=== PATIENT | female | born 1940 | race Caucasian/White ===

== ENCOUNTER 2020-11-29 12:42 | Observation (INO) ==
[2020-11-29] MEDS ORDERED: 0.9 % SODIUM CHLORIDE 1,000 ML IV ONE (14:03)
[2020-11-29] MEDS ORDERED: ONDANSETRON 4 MG/2 ML VIAL IV ONE (14:03)
--- NOTE | 2020-11-29 14:03 | Emergency Department Note ---
HPI General Chief complaint: Nausea/Vomiting/Diarrhea Stated complaint: Nausea Time Seen by Provider: 11/29/20 13:29 Source: patient Mode of arrival: wheelchair Limitations: no limitations History of Present Illness HPI Narrative: Narrative: 80-year-old female with a past medical history of a TIA, hypertension, type 2 diabetes presents emergency department with complaints of weakness, nausea and history of unable to speak for about 30 minutes. She states that from 02-14 she was unable to answer any questions from her while they are eating breakfast. It resolved but she was still having nausea and felt weak. Here in the emergency department she denies any focal neurological deficits but still feels weak and mildly nauseous. She denies fever, headache, changes in vision, chest pain, shortness of breath, abdominal pain, nausea, vomiting, diarrhea, dysuria, urinary frequency but endorses urgency for the last couple days. Related Data Home Medications Medication Instructions Recorded Confirmed Aspirin 01/17/15 01/17/15 Clopidogrel DAILY 01/17/15 01/17/15 Flaxseed 01/17/15 01/17/15 Irbesartan DAILY 01/17/15 01/17/15 Super Sha-Mag Tablet 01/17/15 01/17/15 Vitamin B12 01/17/15 01/17/15 sitaGLIPtin DAILY 01/17/15 01/17/15 amlodipine PO 11/29/20 11/29/20 clonidine HCl 0.2 mg PO BID 11/29/20 11/29/20 estradiol mg PO 11/29/20 11/29/20 ferrous sulfate 325 mg PO QDAY 11/29/20 11/29/20 glipizide-metformin tab PO 11/29/20 11/29/20 metoprolol tartrate 100 mg PO BID 11/29/20 11/29/20 omeprazole 20 mg PO ACB 11/29/20 11/29/20 potassium chloride [Klor-Con M10] 10 meq PO DAILY 11/29/20 11/29/20 prednisone PO 11/29/20 11/29/20 Previous Rx's Medication Instructions Recorded ciprofloxacin HCl 250 mg PO BID #14 tab 11/19/18 hydrocodone-acetaminophen 1 each PO 3-4XD #20 tab 11/19/18 Allergies Allergy/AdvReac Type Severity Reaction Status Date / Time Antihistamines - Alkylamine Allergy Severe NUMBNESS/TI Verified 11/29/20 12:47 [ANTIHISTAMINES - ALKYLAMINE] NGLING morphine [MORPHINE] AdvReac Intermediate VOMITING Verified 11/29/20 12:47 Enalapril [ENALAPRIL] AdvReac Mild COUGH Verified 11/29/20 12:47 tramadol [TRAMADOL] AdvReac Mild VOMIT Verified 11/29/20 12:47 SUGAR Allergy Mild TINGLING Uncoded 11/09/14 13:55 TO EXTREMITIES Review of Systems ROS ROS Narrative: Narrative: All systems ED: reviewed and negative except as stated. Constitutional: Reports weakness Gastrointestinal: Reports nausea Neurological: Reports other (Temporary dysphagia) PFSH Narrative Patient History Narrative: Narrative: Medical/Surgical/Family History All Active Problems (Updated 11/29/20 @ 17:50 by Kendrick Talley PA-C) Dehydration (Acute) Hematoma (Acute) UTI (urinary tract infection) (Acute) Brain TIA (Acute) Acute UTI (Acute) Medical History Dehydration Social History Smoking Status: Never smoker Exam Narrative Narrative: Narrative: General Limitations: no limitations General appearance: Present alert, in no apparent distress, nontoxic and other Eye Eye: Present PERRL and EOMI Respiratory Respiratory: Present normal lung sounds bilaterally Cardiovascular Cardiovascular: Present regular rate, normal rhythm and normal heart sounds Adbominal Abdominal: Present other (Abdomen soft, nondistended, no guarding) Back Back: Present other (No CVA tenderness) Expanded Neurological Patient oriented to: Present person, place and time Speech: Present fluid speech CRANIAL NERVES: EOM function (II, III, IV, ): Normal, facial sensation (V): Normal, facial palsy (VII): Normal, gag reflex (IX): Normal, spinal accessory function (XI): Normal and tongue deviation (XII): Normal CEREBELLAR FUNCTION: finger to nose: Normal and heel to shine: Normal CEREBELLAR FUNCTION: normal gait and other (No truncal ataxia, mild left pronator drift) Motor strength - LUE: 5/5 Motor strength - RUE: 5/5 Motor strength - LLE: 5/5 Motor strength - RLE: 5/5 UPPER MOTOR NEURON EXAM: juan ramon neglect: Normal Coma Scale Eye Opening: Spontaneous Coma Scale Motor Response: Obeys Commands Coma Scale Verbal Response: Oriented Coma Scale Total: 15 Psychiatric Psychiatric: Present normal affect Skin Skin: Present warm (WNL), dry and normal color Course Vital Signs Vital signs: Vital Signs Temperature 98.4 F 11/29/20 12:43 Pulse Rate 73 11/29/20 12:43 Respiratory Rate 16 11/29/20 12:43 Blood Pressure 184/79 11/29/20 12:43 Pulse Oximetry (%) 98 11/29/20 12:43 Temperature 98.4 F 11/29/20 12:43 Pulse Rate 75 11/29/20 17:01 Respiratory Rate 16 11/29/20 12:43 Blood Pressure 157/68 11/29/20 17:01 Pulse Oximetry (%) 97 11/29/20 17:01 MDM MDM Narrative Medical decision making narrative: Narrative: 325 given due to the patient already taking baby aspirin and clopidogrel together. CBC CMP UA Orthostatic vital signs EKG shows normal sinus rhythm no signs of ischemia Portable chest x-ray showed borderline cardiomegaly without acute finding CT of the brain without contrast were negative for acute normality 1 L of normal saline ordered for possible dehydration Zofran for nausea Patient's labs reviewed and mildly elevated white count. Her orthostatic vital signs were within normal range. She has a UA that is indicative of the urinary tract infection. With the patient's history of a TIA and another episode of Aphasia patient needs to be admitted for TIA and further work-up as well as treatment of urinary tract infection The hospitalist agreed to come the emergency department to evaluate the patient admit for further evaluation and treatment. Lab Data Result diagrams: 11/29/20 14:34 11/29/20 14:34 Labs: Lab Results 11/29/20 11/29/20 11/29/20 Range/Units 14:34 14:34 15:54 WBC 15.2 H (4.5-11.0) K/mcL RBC 4.99 (4.00-5.20) M/mcL Hgb 13.9 (12.0-15.0) g/dL Hct 43.0 (36.0-48.0) % MCV 86.2 (80.0-100.0) fL MCH 27.9 (26.0-34.0) pg MCHC 32.3 (31.0-36.0) g/dL RDW 13.7 (11.5-14.5) % Plt Count 237 (140-440) K/mcL MPV 10.3 (7.4-10.4) fL Neut % (Auto) 74.6 (38.0-78.0) % Lymph % (Auto) 14.8 L (15.0-49.0) % [place] % (Auto) 9.6 (1.0-12.0) % Eos % (Auto) 0.3 (0.0-7.0) % Baso % (Auto) 0.7 (0.0-2.0) % Lymph # (Auto) 2.25 (1.50-4.80) K/mcL [place] # (Auto) 1.45 H (0.10-0.90) K/mcL Eos # (Auto) 0.05 (0.00-0.70) K/mcL Baso # (Auto) 0.10 (0.00-0.20) K/mcL Absolute Neutrophils 11.33 H (1.80-8.00) K/mcL Sodium 140 (133-145) mmol/L Potassium 3.4 (3.3-5.1) mmol/L Chloride 98 (96-108) mmol/L Carbon Dioxide 29 (22-30) mmol/L Anion Gap 13.0 (8.0-16.0) BUN 10 (8-23) mg/dL Creatinine 0.6 (0.6-1.1) mg/dL GFR Calculation 87 Glucose 194 H (70-105) mg/dL Calcium 9.6 (8.6-10.4) mg/dL Total Bilirubin 0.6 (0.1-1.0) mg/dL AST 11 (<32) U/L ALT 12 (<40) U/L Alkaline Phosphatase 112 (39-117) U/L Total Protein 7.1 (5.9-8.4) gm/dL Albumin 4.1 (3.2-5.2) gm/dL Globulin 3.0 (2.2-3.7) gm/dL Albumin/Globulin Ratio 1.4 (1.0-2.3) Urine Color Yellow Urine Appearance Hazy A (Clear) Urine pH 6.0 (5.0-9.0) Ur Specific [place] 1.007 (1.000-1.035) Urine Protein Neg (Negative) mg/dL Urine Glucose (UA) >=500 A (Negative) mg/dL Urine Ketones Neg (Negative) mg/dL Urine Occult Blood Neg (Negative) mg/dL Urine Nitrate Neg (Negative) Urine Bilirubin Neg (Negative) mg/dL Urine Urobilinogen Neg mg/dL Ur Leukocyte Esterase 75 A (Negative) /ug Urine RBC 1 (0-3) /hpf Urine WBC 26 H (0-4) /hpf Ur Squamous Epith Cells 1 (0-4) /hpf Urine Bacteria Mod A (0) /hpf Urine Mucus Few A (None) /hpf EKG Data EKG #1: EKG results narrative: ECG shows normal sinus rhythm., Left axis deviation, normal MN interval and narrow QRS normal QTC. There is T wave inversion in V2 which was there in 2015. Otherwise there is no signs of Brugada, Edssh-Bubqppidi-Hmcdx or HOCM. There is no ST segment deviations or hyperacute T waves. My interpretation is normal sinus rhythm with left axis deviation. The EKG was reviewed by ER physician who agreed with my interpretation. Discharge Plan Patient/Caregiver Discharge Instructions Pt seen by INDUSTRIAL RETROFIT DESIGNER/PA only: Yes Clinical Impression: Brain TIA, Acute UTI Activity: increase activity as tolerated Instructions: Transient Ischemic Attack (ED) Patient Disposition: Xfer As Inpt ([facility]) Condition: Serious Follow up with: Lisa Beach MD [Primary Care Provider] - Prescriptions: No Action Aspirin 325 MG 325 mg PO DAILY RF: 0 Clopidogrel 75 MG DAILY RF: 0 Flaxseed 1 cap PO DAILY RF: 0 Irbesartan 300 MG 300 mg PO DAILY RF: 0 Super Sha-Mag Tablet 1 cap PO BID RF: 0 Vitamin B12 1,000 MCG/15 ML RF: 0 sitaGLIPtin 100 MG DAILY RF: 0 hydrocodone-acetaminophen 1 EACH tablet 1 each PO 3-4XD Qty: 20 RF: 0 ciprofloxacin HCl 250 MG tablet 250 mg PO BID Qty: 14 RF: 0 ferrous sulfate 325 mg (65 mg iron) Tablet 325 mg PO QDAY RF: 0 amlodipine 5 mg tablet 5 mg PO BID RF: 0 clonidine HCl 0.2 mg tablet 0.2 mg PO BID RF: 0 estradiol 0.5 mg tablet PO RF: 0 potassium chloride [Klor-Con M10] 10 mEq tablet,ER particles/crystals 10 meq PO DAILY RF: 0 glipizide-metformin 2.5-500 mg tablet 2 tab PO BID RF: 0 metoprolol tartrate 100 mg tablet 100 mg PO BID RF: 0 prednisone 5 mg tablet PO RF: 0 omeprazole 20 mg capsule,delayed release(DR/EC) 20 mg PO ACB RF: 0
--- NOTE | 2020-11-29 15:01 | XRay Report ---
CLINICAL INFORMATION: Weakness COMPARISON: 03/30/2014 TECHNIQUE: Portable FINDINGS: The heart is mildly enlarged with decreased. Mediastinum and pulmonary vessels are unremarkable. The lungs are clear. There are no effusions. The bones and soft tissues are within normal limits. IMPRESSION: Borderline cardiomegaly. No acute disease. Interpreted and Authenticated by: Arsalan Shipley 11/29/20
[2020-11-29 15:06] LABS: Basophils % (Auto) 0.7 % (0.0-2.0); Eosinophils # (Auto) 0.05 K/mcL (0.00-0.70); Eosinophils % (Auto) 0.3 % (0.0-7.0); Hemoglobin 13.9 g/dL (12.0-15.0); Lymphocytes # (Auto) 2.25 K/mcL (1.50-4.80); Lymphocytes % (Auto) 14.8 % (15.0-49.0); Mean Cell Volume 86.2 fL (80.0-100.0); Mean Corpuscular HGB Conc 32.3 g/dL (31.0-36.0); Mean Platelet Volume 10.3 fL (7.4-10.4); Monocytes # (Auto) 1.45 K/mcL (0.10-0.90); Monocytes % (Auto) 9.6 % (1.0-12.0); Neutrophils % (Auto) 74.6 % (38.0-78.0); Platelet Count 237 K/mcL (140-440); RBC 4.99 M/mcL (4.00-5.20); Red Cell Distribution Width 13.7 % (11.5-14.5); WBC 15.2 K/mcL (4.5-11.0)
--- NOTE | 2020-11-29 15:08 | EKG ---
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 Measurements Intervals [place] Rate: 71 P: -45 MD: 143 QRS: -13 QRSD: 85 T: 6 QT: 389 QTc: 423 Interpretive Statements Sinus or ectopic atrial rhythm Low voltage, precordial leads Nonspecific T abnormalities, anterior leads NO PRIOR TRACING FOR COMPARISON Electronically Signed On 11-29-2020 15:08:15 PDT by Olivier Joseph M.D. /store/[email or web address]/[id number]
--- NOTE | 2020-11-29 15:22 | Cat Scan Report ---
CLINICAL INFORMATION: TIA COMPARISON: Head CT 03/30/2014 TECHNIQUE: 2.5 mm helical slices were obtained in the skull base to vertex. Following reconstruction, axial reformatted images were reviewed at bone and parenchymal windows. The exam was performed using radiation dose optimization techniques including, but not limited to, automated exposure control, adjustment of the mA and/or kV according to patient size and use of iterative reconstruction technique. FINDINGS: The ventricles, sulci, fissures, and cisterns are symmetrically enlarged consistent with mild age-related atrophy - expected for age.. No extra-axial fluid collections are identified. Moderate remote cortical-based infarct in the right frontal occipital junction is again noted. Mild patchy chronic ischemic changes, in the cerebral white matter, expected for age.. There is no evidence of hemorrhage, mass effect, or edema. Bone windows show no osseous abnormality. 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 No acute findings Interpreted and Authenticated by: Arsalan Shipley 11/29/20
[2020-11-29 15:32] LABS: ALT/SGPT 12 U/L (<40); AST/SGOT 11 U/L (<32); Albumin 4.1 gm/dL (3.2-5.2); Albumin/Globulin Ratio 1.4 (1.0-2.3); Alkaline Phosphatase 112 U/L (39-117); Bilirubin,Total 0.6 mg/dL (0.1-1.0); Blood Urea Nitrogen 10 mg/dL (8-23); Calcium 9.6 mg/dL (8.6-10.4); Carbon Dioxide 29 mmol/L (22-30); Chloride 98 mmol/L (96-108); Glomerular Filtration Rate 87; Glucose 194 mg/dL (70-105)
[2020-11-29 17:09] LABS: Appearance,Urine HAZY (Clear); Bacteria,Urine MOD /hpf (0); Bilirubin,Urine NEG (Negative); Color,Urine YELLOW; Glucose,Urine (UA) >=500 mg/dL (Negative); Ketones,Urine NEG (Negative); Leukocyte Esterase,Urine 75 /ug (Negative); Mucus,Urine FEW /hpf; Nitrate,Urine NEG (Negative); Protein,Urine NEG (Negative); Specific Gravity,Urine 1.007 (1.000-1.035); Urine Blood NEG (Negative); Urine RBC 1 /hpf (0-3); Urine Squamous Epithelial Cell 1 /hpf (0-4); Urine WBC 26 /hpf (0-4); Urobilinogen,Urine NEG
--- NOTE | 2020-11-29 17:33 | Internal Med History&Physical ---
HPI History of Present Illness Patient information: Note initiated : 11/29/20 at 5:29 pm Service Date, if different from initiated Date: [] Patient: Ivonne Pimentel a 80 y/o F admitted on for Nausea. Chief Complaint: [] History of present illness: Ms. Pimentel is a 80 year old F Presents the ED with generalized weakness nausea. She also reported about 30- minute period this morning at 9 where she was unable to answer questions from her . And a period of unable to speak for 30 minutes EKG in the ED was sinus rhythm. CT brain no acute pathology but showed old stroke. Vital signs were showing elevated blood pressure but other vitals were remarkable. Urinalysis pending. CBC with leukocytosis of 15. Chemistry unremarkable. She states she woke up this normal feeling fine. Has had no recent illnesses. Per the family she has had episodes similar to this in the past but they feel related to dehydration/UTI/possibly TIA. Urinalysis with findings consistent with infection. Patient denies any focal weakness or numbness or tingling. Review of Systems: Pertinent positives as above. Denies headache/fever/chills/nausea/vomiting/chest or abdominal pain/cough/dyspnea/diarrhea. Many 10 point review of system reviewed negative PFSH PFSH All Active Problems Dehydration (Acute) Hematoma (Acute) UTI (urinary tract infection) (Acute) Medical History Dehydration Social History (Updated 11/29/20 @ 17:31 by Tiago Turcios DO) additional history: PAST MEDICAL HISTORY: Includes diabetes, hypertension, gastroesophageal reflux disease, right lower extremity excision of melanoma in 2004, history of diastolic congestive heart failure, osteoarthritis, history of transient ischemic attacks. CVA PAST SURGICAL HISTORY: Tonsillectomy and adenectomy, right shoulder surgeries, sacroiliac joint fusion, left ankle surgery, bilateral cataracts, appendectomy, cholecystectomy, hysterectomy. FAMILY HISTORY: Per records mother had hypertension, diabetes and myocardial infarction. Father had hypertension and cerebrovascular accidents. 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 She lives at home with her . MEDS/ALLERGIES Home Medications and Allergies Home Medications Medication Instructions Recorded Confirmed Type Aspirin 325 mg PO DAILY 01/17/15 01/17/15 History Clopidogrel DAILY 01/17/15 01/17/15 History Flaxseed 1 cap PO DAILY 01/17/15 11/29/20 History Glipizide-Metformin 2.5-500 mg BID 01/17/15 01/17/15 History Irbesartan 300 mg PO DAILY 01/17/15 11/29/20 History Lopressor BID 01/17/15 01/17/15 History Pantoprazole DAILY 01/17/15 01/17/15 History Prednisolone DAILY 01/17/15 01/17/15 History Super Sha-Mag Tablet 1 cap PO BID 01/17/15 11/29/20 History Vitamin B12 01/17/15 01/17/15 History sitaGLIPtin DAILY 01/17/15 01/17/15 History ciprofloxacin HCl 250 mg PO BID #14 tab 11/19/18 Rx hydrocodone-acetaminophen 1 each PO 3-4XD #20 tab 11/19/18 Rx amlodipine PO 11/29/20 11/29/20 History clonidine HCl 0.2 mg PO BID 11/29/20 11/29/20 History estradiol mg PO 11/29/20 11/29/20 History ferrous sulfate 325 mg PO QDAY 11/29/20 11/29/20 History glipizide-metformin tab PO 11/29/20 11/29/20 History metoprolol tartrate 100 mg PO BID 11/29/20 11/29/20 History omeprazole PO 11/29/20 11/29/20 History potassium chloride [Klor-Con M10] 10 meq PO DAILY 11/29/20 11/29/20 History prednisone PO 11/29/20 11/29/20 History Allergies Allergy/AdvReac Type Severity Reaction Status Date / Time Antihistamines - Alkylamine Allergy Severe NUMBNESS/TI Verified 11/29/20 12:47 [ANTIHISTAMINES - ALKYLAMINE] NGLING morphine [MORPHINE] AdvReac Intermediate VOMITING Verified 11/29/20 12:47 Enalapril [ENALAPRIL] AdvReac Mild COUGH Verified 11/29/20 12:47 tramadol [TRAMADOL] AdvReac Mild VOMIT Verified 11/29/20 12:47 SUGAR Allergy Mild TINGLING Uncoded 11/09/14 13:55 TO EXTREMITIES EXAM Constitutional Vitals: Temp Pulse Resp BP Pulse Ox 98.4 F 75 16 157/68 97 11/29/20 12:43 11/29/20 17:01 11/29/20 12:43 11/29/20 17:01 11/29/20 17:01 Exam: General: Alert, Awake, No acute Distress Eyes/N/T: EOMI, PERRL, dry MM Head/Neck: neck supple, normocephalic atraumatic CV: RRR, No murmurs, normal s1/s2 Pulm: Clear b/l, no wheezing/rhonchi/rales Abd: soft, nontender, +BS x4 Ext: no clubbing/cyanosis/edema Neuro: Alert, no focal deficits, moves all extremities, CN 2-12 grossly intact, symmetrical strength b/l upper/lower, sensations intact b/l upper/lower Skin: warm/dry DATA Data Completed and Pending Labs: Labs from last 24 hours 11/29/20 11/29/20 11/29/20 15:54 14:34 14:34 WBC 15.2 H RBC 4.99 Hgb 13.9 Hct 43.0 MCV 86.2 MCH 27.9 MCHC 32.3 RDW 13.7 Plt Count 237 MPV 10.3 Neut % (Auto) 74.6 Lymph % (Auto) 14.8 L [place] % (Auto) 9.6 Eos % (Auto) 0.3 Baso % (Auto) 0.7 Lymph # (Auto) 2.25 [place] # (Auto) 1.45 H Eos # (Auto) 0.05 Baso # (Auto) 0.10 Absolute Neutrophils 11.33 H Sodium 140 Potassium 3.4 Chloride 98 Carbon Dioxide 29 Anion Gap 13.0 BUN 10 Creatinine 0.6 GFR Calculation 87 Glucose 194 H Calcium 9.6 Total Bilirubin 0.6 AST 11 ALT 12 Alkaline Phosphatase 112 Total Protein 7.1 Albumin 4.1 Globulin 3.0 Albumin/Globulin Ratio 1.4 Urine Color Yellow Urine Appearance Hazy A Urine pH 6.0 Ur Specific [place] 1.007 Urine Protein Neg Urine Glucose (UA) >=500 A Urine Ketones Neg Urine Occult Blood Neg Urine Nitrate Neg Urine Bilirubin Neg Urine Urobilinogen Neg Ur Leukocyte Esterase 75 A Urine RBC 1 Urine WBC 26 H Ur Squamous Epith Cells 1 Urine Bacteria Mod A Urine Mucus Few A A/P Narrative A/P Narrative: A: *suspected TIA vs AMS w/UTI: -ABCD=5 *AMS(awake but unresponsive to questions for 30-minutes): *h/o CVA: on ASA, do not see statin, was on ASA and plavix in past but stopped for a back hematoma after procedure 2018 *UTI: *HTN: ?norvasc/losartan/lopressor/clonidine *DM: A1c *h/o diastolic cardiac dysfxn: *GERD * P: -IVF -echo and carotid u/s pending -DAPT x21 days, start Statin -neurochecks -Rocephin pending UC -cont DM meds, SSI -home med clarification -pT/OT -ppx: Lovenox/home ppi DNR Time Spent With Patient Time: Total time spent is greater than 50% in coordination of care (as documented) at patient's floor/unit and/or counseling patient:
[2020-11-29] MEDS ORDERED: POTASSIUM CHLORIDE 20 MEQ TABLET PO PRN ×2 (19:17)
[2020-11-29] MEDS ORDERED: IPRATROPIUM/ALBUTEROL 3 ML AMPUL.NEB NEB PRN (19:17)
[2020-11-29] MEDS ORDERED: MAGNESIUM SULFATE 2 GM/50 ML BAG IV PRN (19:17)
[2020-11-29] MEDS ORDERED: 0.9 % SODIUM CHLORIDE 1,000 ML IV SCH (19:17)
[2020-11-29] MEDS ORDERED: DEXTROSE 31 GM ORAL.SUSP PO PRN (19:17)
[2020-11-29] MEDS ORDERED: DEXTROSE 50% 50 ML VIAL IV PRN (19:17)
[2020-11-29] MEDS ORDERED: POTASSIUM CHLORIDE 40 MEQ in DEXTROSE 5% IN WATER 500 ML IV PRN (19:17)
[2020-11-29] MEDS ORDERED: LABETALOL 5 MG/ML ML IV PRN (19:17)
[2020-11-29] MEDS ORDERED: ONDANSETRON 4 MG/2 ML VIAL IV PRN (19:17)
[2020-11-29] MEDS: cloNIDine HCL 0.1 MG TABLET PO SCH (20:23)
[2020-11-29] MEDS: CLOPIDOGREL 75 MG TABLET PO SCH (20:23)
[2020-11-29] MEDS: cefTRIAXone 1 GM VIAL IV SCH (20:23)
[2020-11-29] MEDS: ASPIRIN 81 MG TAB.CHEW CHEWED SCH (20:23)
[2020-11-29] MEDS ORDERED: HYDROcodone/APAP (PP) 7.5/325MG TABLET (#4) PO SCH (21:15)
[2020-11-29] MEDS: ATORVASTATIN 40 MG TABLET PO SCH (21:45)
[2020-11-29] MEDS: INSULIN LISPRO 1 UNIT/0.01 ML UNIT SQ SCH (21:48)
[2020-11-30 01:29] LABS: Hemoglobin A1C 10.3 % Hgb (4.0-6.0)
[2020-11-30] MEDS: HYDROCODONE/APAP 7.5/325MG TABLET PO PRN (03:10)
--- NOTE | 2020-11-30 03:57 | Ultrasound Report ---
CLINICAL INFORMATION: TIA COMPARISON: None. TECHNIQUE: Spectral Doppler velocity measurements were obtained in the proximal, mid and distal common and internal carotid, both vertebral and proximal external carotid arteries bilaterally. Supplemental color and power Doppler imaging was also obtained to optimize stenosis detection. In reporting, any internal carotid stenosis was indirectly quantified comparing the distal internal carotid velocity. For ratio comparison, the internal carotid artery, at the level of stenosis, was utilized in the numerator and the normal distal internal carotid artery velocity was utilized as the denominator. Velocities are validated with angiographic measurements extrapolated from diameter data - as defined by the Society of Radiologists in Ultrasound Consensus Conference .Radiology 2003; 229; 340 - 346. FINDINGS: See worksheet by the technologist for velocities in PACS IMPRESSION: Both common, internal and external carotid arteries are widely patent. Minimal fibrofatty calcific plaque present in the carotid bifurcations. Antegrade flow present in both vertebral arteries Please correlate with CTA CT Angiography or MRA MR Angiography if surgery is contemplated. Interpreted and Authenticated by: Arsalan Shipley 11/30/20
[2020-11-30 06:16] LABS: Hematocrit 36.8 % (36.0-48.0); Hemoglobin 11.8 g/dL (12.0-15.0); Mean Cell Volume 86.8 fL (80.0-100.0); Mean Corpuscular HGB Conc 32.1 g/dL (31.0-36.0); Mean Platelet Volume 10.5 fL (7.4-10.4); Platelet Count 191 K/mcL (140-440); RBC 4.24 M/mcL (4.00-5.20); Red Cell Distribution Width 13.7 % (11.5-14.5); WBC 14.6 K/mcL (4.5-11.0)
[2020-11-30 07:05] LABS: ALT/SGPT 10 U/L (<40); AST/SGOT 12 U/L (<32); Albumin 3.3 gm/dL (3.2-5.2); Albumin/Globulin Ratio 1.4 (1.0-2.3); Alkaline Phosphatase 91 U/L (39-117); Bilirubin,Direct < 0.2 mg/dL (0-0.3); Bilirubin,Total 0.4 mg/dL (0.1-1.0); Blood Urea Nitrogen 9 mg/dL (8-23); Calcium 8.3 mg/dL (8.6-10.4); Carbon Dioxide 26 mmol/L (22-30); Chloride 101 mmol/L (96-108); Globulin 2.3 gm/dL (2.2-3.7); Glomerular Filtration Rate 87; Glucose 226 mg/dL (70-105); Lactate Dehydrogenase 143 U/L (135-225); Phosphorous 3.1 mg/dL (2.5-4.5); Triglycerides 140 mg/dL (<150); Uric Acid 3.8 mg/dL (2.5-8.0)
[2020-11-30] MEDS ORDERED: MAGNESIUM SULFATE 2 GM/50 ML BAG IV ONE (07:29)
--- NOTE | 2020-11-30 07:29 | Internal Med Progress Note ---
SUBJECTIVE Subjective Patient information: Note initiated : 11/30/20 at 7:21 am Service Date, if different from initiated Date: [] Patient: Ivonne Pimentel a 80 y/o F admitted on 11/29/20 for Nausea. Chief Complaint: [] Interval history: History of present illness: Ms. Pimentel is a 80 year old F Presents the ED with generalized weakness nausea. She also reported about 30- minute period this morning at 9 where she was unable to answer questions from her . And a period of unable to speak for 30 minutes EKG in the ED was sinus rhythm. CT brain no acute pathology but showed old stroke. Vital signs were showing elevated blood pressure but other vitals were remarkable. Urinalysis pending. CBC with leukocytosis of 15. Chemistry unremarkable. She states she woke up this normal feeling fine. Has had no recent illnesses. Per the family she has had episodes similar to this in the past but they feel related to dehydration/UTI/possibly TIA. Urinalysis with findings consistent with infection. Patient denies any focal weakness or numbness or tingling. 11/30 No overnight event or new complaints. Patient feeling well. Pending urine culture.e Review of Systems: denies headache/fever/chills/nausea/vomiting/chest or abdominal p ain/cough/dyspnea/diarrhea. Otherwise see above. Constitutional Vitals: Vital Signs Temp Pulse Resp BP Pulse Ox 100.0 F H 70 15 152/66 97 11/30/20 05:07 11/30/20 05:07 11/30/20 05:07 11/30/20 05:07 11/30/20 05:07 Period Temp Pulse Resp BP Sys/[place] Pulse Ox Last 24 Hr 98.4 F-100.8 F 64-89 12-20 95-184/44-86 88-98 Intake and Output 11/29/20 11/30/20 11/30/20 21:59 05:59 13:59 Intake Total 1120 840 Output Total 301 377 Balance 819 463 Weight 60.6 kg Intake & Output: Intake & Output 11/29/20 11/30/20 11/30/20 21:59 05:59 13:59 Intake Total 1120 840 Output Total 301 377 Balance 819 463 Weight 60.6 kg Intake: IV 1000 Sodium Chloride 0.9% 1,000 ml @ 1000 Wide Open IV BOLUS ONE Rx#: [id number] Oral 120 840 Output: Void Amount 300 375 # of times incontinent of urine 1 2 Other: Meal 2 Crackers, string cheese Percent of Meal Consumed 100% Feeding Ability Independent Urine Appearance Cloudy Cloudy Straight Cloudy Urine Color Bright Yellow Bright Yellow Straight Straw Urine Odor Strong Strong Exam: General: Alert, Awake, No acute Distress Eyes/N/T: EOMI, Head/Neck: neck supple, CV: RRR, No murmurs, Pulm: Clear b/l, no wheezing/rhonchi/rales Abd: soft, nontender, +BS x4 Ext: no clubbing/cyanosis/edema Neuro: Alert, no focal deficits, moves all extremities, Skin: warm/dry OBJ DATA Labs CBC & Chem 7: 11/30/20 05:26 11/30/20 05:26 Labs: Abnormal Lab Results 11/30/20 11/30/20 11/29/20 05:26 05:26 19:29 WBC 14.6 H Hgb 11.8 L MPV 10.5 H Lymph % (Auto) [place] # (Auto) Absolute Neutrophils Glucose 226 H Hemoglobin A1c 10.3 H Calcium 8.3 L Magnesium 1.5 L Total Protein 5.6 L Urine Appearance Urine Glucose (UA) Ur Leukocyte Esterase Urine WBC Urine Bacteria Urine Mucus 11/29/20 11/29/20 11/29/20 15:54 14:34 14:34 WBC 15.2 H Hgb MPV Lymph % (Auto) 14.8 L [place] # (Auto) 1.45 H Absolute Neutrophils 11.33 H Glucose 194 H Hemoglobin A1c Calcium Magnesium Total Protein Urine Appearance Hazy A Urine Glucose (UA) >=500 A Ur Leukocyte Esterase 75 A Urine WBC 26 H Urine Bacteria Mod A Urine Mucus Few A Meds: Medications Hydrocodone Bitart/Acetaminophen (Hydrocodone/Apap 7.5/325mg Tablet) 1 tab PO QIDP PRN; Protocol PRN Reason: Per Pain Protocol Last Admin: 11/30/20 03:10 Dose: 1 tab Documented by: Albuterol/Ipratropium (Ipratropium/Albuterol 3 Ml Ampul.Neb) 3 ml NEB Q4HP PRN PRN Reason: Shortness Of Breath Aspirin (Aspirin 81 Mg Tab.Chew) 81 mg CHEWED DAILY [facility] Last Admin: 11/29/20 20:23 Dose: 81 mg Documented by: Atorvastatin Calcium (Atorvastatin 40 Mg Tablet) 40 mg PO HS [facility] Last Admin: 11/29/20 21:45 Dose: 40 mg Documented by: Ceftriaxone Sodium (Ceftriaxone 1 Gm Vial) 1 gm IV DAILY [facility]; Protocol Last Admin: 11/29/20 20:23 Dose: 1 gm Documented by: Clonidine HCl (Clonidine Hcl 0.1 Mg Tablet) 0.2 mg PO BID [facility] Last Admin: 11/29/20 20:23 Dose: 0.2 mg Documented by: Clopidogrel Bisulfate (Clopidogrel 75 Mg Tablet) 75 mg PO DAILY [facility] Last Admin: 11/29/20 20:23 Dose: 75 mg Documented by: Dextrose (Dextrose 50% 50 Ml Vial) 0 ml IV UD PRN PRN Reason: Hypoglycemia Diagnostic Test (Pha) (Accu-Chek 1 Each Strip) 1 each [facility] Last Admin: 11/29/20 22:56 Dose: 1 each Documented by: Enoxaparin Sodium (Enoxaparin 30 Mg/0.3 Ml Syringe) 30 mg SQ DAILY [facility] Glucose (Dextrose 31 Gm Oral.Susp) 15 gm PO PRN PRN PRN Reason: Hypoglycemia Potassium Chloride 40 meq/ (Dextrose) 520 mls @ 130 mls/hr IV UD PRN PRN Reason: Potassium < 3 Magnesium Sulfate (Magnesium Sulfate) 2 gm in 50 mls @ 50 mls/hr IV UD PRN PRN Reason: Magnesium </= 1.6 Sodium Chloride (Sodium Chloride 0.9%) 1,000 mls @ 75 mls/hr IV .[id number] [facility] Stop: 11/30/20 21:56 Last Admin: 11/29/20 19:43 Dose: 75 mls/hr Documented by: Insulin Human Lispro (Insulin Lispro 1 Unit/0.01 Ml Unit) 0 unit SQ [facility]; Protocol Last Admin: 11/29/20 21:48 Dose: Not Given Documented by: Labetalol HCl (Labetalol 5 Mg/Ml Ml) 0 mg IV Q2HP PRN PRN Reason: Hypertension Omeprazole (Omeprazole 20 Mg Capsule) 20 mg PO ACB [facility] Ondansetron HCl (Ondansetron 4 Mg/2 Ml Vial) 4 mg IV Q4HP PRN PRN Reason: Nausea And Vomiting Potassium Chloride (Potassium Chloride 20 Meq Tablet) 40 meq PO UD PRN PRN Reason: Potssium is 3-3.5 Last Admin: 11/30/20 03:10 Dose: 40 meq Documented by: Potassium Chloride (Potassium Chloride 20 Meq Tablet) 40 meq PO UD PRN PRN Reason: Potassium < 3 Prednisone (Prednisone 5 Mg Tablet) 5 mg PO QAC JUAN A/P Narrative A/P Narrative: A: *TIA vs AMS w/UTI: -ABCD=5 -carotid u/s unremarkable *AMS(awake but unresponsive to questions for 30-minutes): resolved *h/o CVA: on ASA, do not see statin, was on ASA and plavix in past but stopped for a back hematoma after procedure 2018 *UTI: *HypoMag: *HTN: ?norvasc/clonidine/Irbesartan/lopressor/ *DM: A1c 10.3 *h/o diastolic cardiac dysfxn: *GERD *on prednisone for ?Polymyalgia Rheumatica P: -DAPT x21 days, started Statin -echo pending -neurochecks -cont clonidine, restart other BP meds in AM (clarify meds) -Rocephin pending UC -home basal and SSI -pT/OT -ppx: Lovenox/home ppi DNR Time Spent With Patient Time: Total time spent is greater than 50% in coordination of care (as documented) at patient's floor/unit and/or counseling patient: QUALITY Stroke Symptom Onset Unknown: No VTE Deep Vein Thrombosis/Pulmonary Embolism Present on Admission: No
[2020-11-30] MEDS: predniSONE 5 MG TABLET PO SCH (07:42)
[2020-11-30] MEDS: OMEPRAZOLE 20 MG CAPSULE PO SCH (07:42)
[2020-11-30] MEDS: INSULIN LISPRO 1 UNIT/0.01 ML UNIT SQ SCH ×4 (07:48→21:55)
[2020-11-30 07:54] LABS: Band Neutrophils % 7 % (0-10); Eosinophils % (Manual) 2 % (0-7); Lymphocytes % 1 % (15-49); Monocytes % (Manual) 7 % (1-12); Platelet Estimate NORMAL (Normal); RBC Morphology NORMAL (Normal); Reactive Lymphocytes 2 % (0-2); Segmented Neutrophils % 81 % (38-78)
[2020-11-30] MEDS: cloNIDine HCL 0.1 MG TABLET PO SCH ×2 (08:41→21:44)
[2020-11-30] MEDS: ENOXAPARIN 30 MG/0.3 ML SYRINGE SQ SCH (08:41)
[2020-11-30] MEDS: CLOPIDOGREL 75 MG TABLET PO SCH (08:41)
[2020-11-30] MEDS: ASPIRIN 81 MG TAB.CHEW CHEWED SCH (08:41)
[2020-11-30] MEDS ORDERED: OMEPRAZOLE 20 MG CAPSULE PO SCH (09:00)
[2020-11-30] MEDS ORDERED: hydrALAZINE 20 MG/ML VIAL IV PRN (09:05)
[2020-11-30] MEDS ORDERED: LABETALOL 5 MG/ML ML IV PRN (09:06)
--- NOTE | 2020-11-30 09:23 | Discharge Summary ---
Discharge Provider Provider Patient information: Note initiated : 11/30/20 at 9:21 am Service Date, if different from initiated Date: [] Patient: Ivonne Pimentel 80 y/o F admitted on 11/29/20 for Nausea. Chief Complaint: [] Date of admission: 11/29/20 19:02 Discharge date: 12/01/20 Primary care physician: Lisa Beach Consults: 11/29/20 Consult to Physician [CONS] Stat Comment: Consulting Provider: Tiago Turcios Reason For Exam: Physician to Consult Discharge Meds Discharge Medications Home Medications Flaxseed 1 cap PO DAILY 01/17/15 [History Confirmed 11/30/20 Last Taken 11/28/20 08:00] Irbesartan 300 mg PO DAILY 01/17/15 [History Confirmed 11/30/20 Last Taken 11/28/20 08:00] Super Sha-Mag Tablet 1 cap PO BID 01/17/15 [History Confirmed 11/30/20 Last Taken 11/28/20 20:00] amlodipine 5 mg PO BID 11/29/20 [History Confirmed 11/29/20 Last Taken 11/28/20 19:00] clonidine HCl 0.2 mg PO BID 11/29/20 [History Confirmed 11/29/20 Last Taken 11/28/20 19:00] estradiol 0.5 mg PO DAILY 11/29/20 [History Confirmed 11/30/20 Last Taken 11/28/20 08:00] ferrous sulfate 325 mg PO QDAY 11/29/20 [History Confirmed 11/30/20 Last Taken 11/28/20 08:00] glipizide-metformin 2 tab PO BID 11/29/20 [History Confirmed 11/30/20 Last Taken 11/28/20 20:00] metoprolol tartrate 100 mg PO BID 11/29/20 [History Confirmed 11/30/20 Last Taken 11/28/20 20:00] omeprazole 20 mg PO DAILY 11/29/20 [History Confirmed 11/30/20 Last Taken 11/28/20 08:00] prednisone 5 mg PO DAILY 11/29/20 [History Confirmed 11/30/20 Last Taken 11/28/20 08:00] Levemir FlexTouch U-100 Insuln 16 unit SUBCUT HS 11/30/20 [History Confirmed 11/30/20 Last Taken 11/28/20 20:00] aspirin 81 mg PO DAILY #21 tab 11/30/20 [Rx Last Taken Unknown] atorvastatin [Lipitor] 10 mg PO QDAY #30 tab 11/30/20 [Rx Last Taken Unknown] benzhydrocodone-acetaminophen 1 tab PO TIDP PRN 11/30/20 [History Confirmed 11/30/20 Last Taken Unknown] cyanocobalamin (vitamin B-12) 1,000 mcg Q2W 11/30/20 [History Confirmed 11/30/20 Last Taken Unknown] furosemide 40 mg PO QAM 11/30/20 [History Confirmed 11/30/20 Last Taken Unknown] potassium chloride [Klor-Con M10] 10 meq PO QNOON 11/30/20 [History Confirmed 11/30/20 Last Taken Unknown] potassium chloride [Klor-Con M10] 20 meq PO BID 11/30/20 [History Confirmed 11/30/20 Last Taken Unknown] clopidogrel 75 mg PO DAILY #60 tab 12/01/20 [Rx Last Taken Unknown] COURSE Hospital Course Hospital course: Interval history: History of present illness: Ms. Pimentel is a 80 year old F Presents the ED with generalized weakness nausea. She also reported about 30- minute period this morning at 9 where she was unable to answer questions from her . And a period of unable to speak for 30 minutes EKG in the ED was sinus rhythm. CT brain no acute pathology but showed old stroke. Vital signs were showing elevated blood pressure but other vitals were remarkable. Urinalysis pending. CBC with leukocytosis of 15. Chemistry unremarkable. She states she woke up this normal feeling fine. Has had no recent illnesses. Per the family she has had episodes similar to this in the past but they feel related to dehydration/UTI/possibly TIA. Urinalysis with findings consistent with infection. Patient denies any focal weakness or numbness or tingling. 11/30 No overnight event or new complaints. Patient feeling well. Pending urine culture.e 12/01 No overnight event or new complaints. Urine culture with E. coli. Leukocytosis resolved. Mild hypokalemia. A: *TIA vs AMS w/UTI: -ABCD=5 -carotid u/s unremarkable *AMS(awake but unresponsive to questions for 30-minutes): resolved *h/o CVA: on ASA, do not see statin, was on ASA and plavix in past but stopped for a back hematoma after procedure 2019 *UTI: *HypoMag: *HTN: ?norvasc/clonidine/Irbesartan/lopressor/ *DM: A1c 10.3 *h/o diastolic cardiac dysfxn: *GERD *on prednisone for ?Polymyalgia Rheumatica Discharge diagnosis: TIA UTI AMS hypomagnesemia Secondary discharge diagnosis: History of stroke hypertension diabetes GERD prednisone chronic use Time Spent with Patient Time attestation: Total time spent providing and/or coordinating discharge services: Time spent: Greater than 30 minutes EXAM Constitutional Vitals: Temp Pulse Resp BP Pulse Ox 98.5 F 68 11 L 162/70 96 11/30/20 08:01 11/30/20 08:04 11/30/20 08:04 11/30/20 08:01 11/30/20 08:04 Discharge Data Data Completed and Pending Labs on day of discharge: Labs from last 24 hours 11/30/20 11/30/20 11/29/20 05:26 05:26 19:29 WBC 14.6 H RBC 4.24 Hgb 11.8 L Hct 36.8 MCV 86.8 MCH 27.8 MCHC 32.1 RDW 13.7 Plt Count 191 MPV 10.5 H Neut % (Auto) Lymph % (Auto) [place] % (Auto) Eos % (Auto) Baso % (Auto) Lymph # (Auto) [place] # (Auto) Eos # (Auto) Baso # (Auto) Seg Neutrophils % 81 H Band Neutrophils % 7 Lymphocytes % 1 L Monocytes % (Manual) 7 Eosinophils % (Manual) 2 Absolute Neutrophils Reactive Lymphocytes 2 Platelet Estimate Normal RBC Morphology Normal Sodium 137 Potassium 4.1 Chloride 101 Carbon Dioxide 26 Anion Gap 10.0 BUN 9 Creatinine 0.6 GFR Calculation 87 Glucose 226 H Hemoglobin A1c 10.3 H Estim Average Glucose 249 Uric Acid 3.8 Calcium 8.3 L Phosphorus 3.1 Magnesium 1.5 L Total Bilirubin 0.4 Direct Bilirubin < 0.2 GGT 6 AST 12 ALT 10 Alkaline Phosphatase 91 Lactate Dehydrogenase 143 Total Protein 5.6 L Albumin 3.3 Globulin 2.3 Albumin/Globulin Ratio 1.4 Triglycerides 140 142 Cholesterol 125 LDL Cholesterol, Calc 33 Non-HDL Cholesterol 61 HDL Cholesterol 64 Urine Color Urine Appearance Urine pH Ur Specific [place] Urine Protein Urine Glucose (UA) Urine Ketones Urine Occult Blood Urine Nitrate Urine Bilirubin Urine Urobilinogen Ur Leukocyte Esterase Urine RBC Urine WBC Ur Squamous Epith Cells Urine Bacteria Urine Mucus 11/29/20 11/29/20 11/29/20 15:54 14:34 14:34 WBC 15.2 H RBC 4.99 Hgb 13.9 Hct 43.0 MCV 86.2 MCH 27.9 MCHC 32.3 RDW 13.7 Plt Count 237 MPV 10.3 Neut % (Auto) 74.6 Lymph % (Auto) 14.8 L [place] % (Auto) 9.6 Eos % (Auto) 0.3 Baso % (Auto) 0.7 Lymph # (Auto) 2.25 [place] # (Auto) 1.45 H Eos # (Auto) 0.05 Baso # (Auto) 0.10 Seg Neutrophils % Band Neutrophils % Lymphocytes % Monocytes % (Manual) Eosinophils % (Manual) Absolute Neutrophils 11.33 H Reactive Lymphocytes Platelet Estimate RBC Morphology Sodium 140 Potassium 3.4 Chloride 98 Carbon Dioxide 29 Anion Gap 13.0 BUN 10 Creatinine 0.6 GFR Calculation 87 Glucose 194 H Hemoglobin A1c Estim Average Glucose Uric Acid Calcium 9.6 Phosphorus Magnesium Total Bilirubin 0.6 Direct Bilirubin GGT AST 11 ALT 12 Alkaline Phosphatase 112 Lactate Dehydrogenase Total Protein 7.1 Albumin 4.1 Globulin 3.0 Albumin/Globulin Ratio 1.4 Triglycerides Cholesterol LDL Cholesterol, Calc Non-HDL Cholesterol HDL Cholesterol Urine Color Yellow Urine Appearance Hazy A Urine pH 6.0 Ur Specific [place] 1.007 Urine Protein Neg Urine Glucose (UA) >=500 A Urine Ketones Neg Urine Occult Blood Neg Urine Nitrate Neg Urine Bilirubin Neg Urine Urobilinogen Neg Ur Leukocyte Esterase 75 A Urine RBC 1 Urine WBC 26 H Ur Squamous Epith Cells 1 Urine Bacteria Mod A Urine Mucus Few A Discharge Plan Patient/Caregiver Discharge Instructions Activity: increase activity as tolerated Diet: Consistent Carbohydrate Instructions: Transient Ischemic Attack (ED) Activity Restrictions/Additional Instructions: Take aspirin and Plavix together for 20 days then stop aspirin and continue Plavix. Prescriptions: New aspirin 81 mg Tablet,Chewable 81 mg PO DAILY Qty: 21 RF: 0 atorvastatin [Lipitor] 10 mg tablet 10 mg PO QDAY Qty: 30 RF: 0 clopidogrel 75 mg Tablet 75 mg PO DAILY Qty: 60 RF: 0 Continued Flaxseed 1 cap PO DAILY RF: 0 Irbesartan 300 MG 300 mg PO DAILY RF: 0 Super Sha-Mag Tablet 1 cap PO BID RF: 0 ferrous sulfate 325 mg (65 mg iron) Tablet 325 mg PO QDAY RF: 0 amlodipine 5 mg tablet 5 mg PO BID RF: 0 clonidine HCl 0.2 mg tablet 0.2 mg PO BID RF: 0 estradiol 0.5 mg tablet 0.5 mg PO DAILY RF: 0 glipizide-metformin 2.5-500 mg tablet 2 tab PO BID RF: 0 metoprolol tartrate 100 mg tablet 100 mg PO BID RF: 0 prednisone 5 mg tablet 5 mg PO DAILY RF: 0 omeprazole 20 mg capsule,delayed release(DR/EC) 20 mg PO DAILY RF: 0 Levemir FlexTouch U-100 Insuln 100 unit/mL (3 mL) insulin pen 16 unit SUBCUT HS RF: 0 furosemide 20 mg tablet 40 mg PO QAM RF: 0 potassium chloride [Klor-Con M10] 10 mEq tablet,ER particles/crystals 20 meq PO BID RF: 0 potassium chloride [Klor-Con M10] 10 mEq tablet,ER particles/crystals 10 meq PO QNOON RF: 0 benzhydrocodone-acetaminophen 6.12-325 mg Tablet 1 tab PO TIDP PRN (Reason: Pain (Scale Score 1-3)) RF: 0 cyanocobalamin (vitamin B-12) 1,000 mcg/mL solution 1,000 mcg Q2W RF: 0 Discontinued Aspirin 325 MG 325 mg PO DAILY RF: 0 ciprofloxacin HCl 250 MG tablet 250 mg PO BID Qty: 14 RF: 0 Follow Up Plan Follow up with: Lisa Beach MD [Primary Care Provider] - Patient Disposition: Home Health Service Prognosis: Fair Overall status at discharge: patient is progressing back to baseline Discharge Orders: Discharge Order (Routine); Ordered 12/01/20 [facility] V[facility] Deep Vein Thrombosis/Pulmonary Embolism Present on Admission: No
[2020-11-30] MEDS: cefTRIAXone 1 GM VIAL IV SCH (10:27)
--- NOTE | 2020-11-30 11:54 | EKG ---
[facility] Test Date: 2020-11-29 Pat Name: Ivonne Pimentel Department: ICU Room: 120D Gender: Female Food Stylist: : 1940 Requested By: Tiago Turcios Order Number: [id number] Reading MD: Olivier Joseph M.D. Measurements Intervals [place] Rate: 72 P: -32 IA: 140 QRS: -10 QRSD: 80 T: 35 QT: 408 QTc: 447 Interpretive Statements SINUS OR ECTOPIC ATRIAL RHYTHM NONSPECIFIC T ABNORMALITIES, ANTERIOR LEADS Since previous ECG of 11-29-2020, 1354, NSC Electronically Signed On 11-30-2020 11:54:30 PDT by Olivier Joseph M.D. /[facility] [place][id number]
[2020-11-30] MEDS ORDERED: [UNRECOGNIZED DRUG - OTHER] PO PRN (17:45)
[2020-11-30] MEDS: 0.9 % SODIUM CHLORIDE 10 ML SYRINGE IV SCH ×2 (19:00→21:44)
[2020-11-30] MEDS ORDERED: INSULIN GLARGINE, HUMAN 1 UNIT/0.01 ML SQ SCH (21:00)
[2020-11-30] MEDS: ATORVASTATIN 40 MG TABLET PO SCH (21:43)
[2020-12-01] MEDS: 0.9 % SODIUM CHLORIDE 10 ML SYRINGE IV SCH (05:46)
[2020-12-01] MEDS: OMEPRAZOLE 20 MG CAPSULE PO SCH (07:27)
[2020-12-01] MEDS: HYDROCODONE/APAP 7.5/325MG TABLET PO PRN (07:27)
[2020-12-01 08:27] LABS: Basophils # (Auto) 0.07 K/mcL (0.00-0.20); Basophils % (Auto) 0.7 % (0.0-2.0); Eosinophils % (Auto) 2.1 % (0.0-7.0); Hematocrit 36.8 % (36.0-48.0); Hemoglobin 11.6 g/dL (12.0-15.0); Lymphocytes % (Auto) 17.5 % (15.0-49.0); Mean Cell Volume 86.8 fL (80.0-100.0); Mean Corpuscular HGB Conc 31.5 g/dL (31.0-36.0); Mean Platelet Volume 10.6 fL (7.4-10.4); Monocytes # (Auto) 0.96 K/mcL (0.10-0.90); Monocytes % (Auto) 9.9 % (1.0-12.0); Neutrophils % (Auto) 69.8 % (38.0-78.0); Platelet Count 178 K/mcL (140-440); RBC 4.24 M/mcL (4.00-5.20); Red Cell Distribution Width 13.3 % (11.5-14.5); WBC 9.7 K/mcL (4.5-11.0)
[2020-12-01] MEDS: ASPIRIN 81 MG TAB.CHEW CHEWED SCH (08:45)
[2020-12-01] MEDS: ENOXAPARIN 30 MG/0.3 ML SYRINGE SQ SCH (08:45)
[2020-12-01] MEDS: INSULIN LISPRO 1 UNIT/0.01 ML UNIT SQ SCH (08:45)
[2020-12-01] MEDS: cefTRIAXone 1 GM VIAL IV SCH (08:45)
[2020-12-01] MEDS: cloNIDine HCL 0.1 MG TABLET PO SCH (08:45)
[2020-12-01] MEDS: predniSONE 5 MG TABLET PO SCH (08:45)
[2020-12-01] MEDS: CLOPIDOGREL 75 MG TABLET PO SCH (08:45)
[2020-12-01 08:47] LABS: ALT/SGPT 36 U/L (<40); AST/SGOT 29 U/L (<32); Albumin 3.1 gm/dL (3.2-5.2); Albumin/Globulin Ratio 1.5 (1.0-2.3); Alkaline Phosphatase 71 U/L (39-117); Bilirubin,Direct < 0.2 mg/dL (0-0.3); Bilirubin,Total 0.5 mg/dL (0.1-1.0); Blood Urea Nitrogen 10 mg/dL (8-23); Calcium 8.9 mg/dL (8.6-10.4); Carbon Dioxide 24 mmol/L (22-30); Chloride 101 mmol/L (96-108); Glomerular Filtration Rate 99; Glucose 78 mg/dL (70-105); Lactate Dehydrogenase 203 U/L (135-225); Phosphorous 2.3 mg/dL (2.5-4.5); Triglycerides 87 mg/dL (<150); Uric Acid 4.5 mg/dL (2.5-8.0)
[2020-12-01] MEDS ORDERED: POTASSIUM CHLORIDE 20 MEQ TABLET PO ONE (09:00)
[2020-12-01] MEDS ORDERED: PHOSPHORUS 250 MG TABLET PO ONE (09:00)
== END 2020-12-01 11:10 | disposition home health service (06) ==
LOC: ED 12:42 → INTOOBSV 19:02 → ICU 19:02
PROVIDERS: ADMIT Internal Medicine; ATTEND Internal Medicine

== ENCOUNTER 2021-05-29 13:31 | Inpatient (IN) ==
[2021-05-29] MEDS ORDERED: IOPAMIDOL 100 ML BOTTLE IV ONE (13:32)
[2021-05-29 13:54] LABS: POC Blood Urea Nitrogen 52 mg/dL (6-20); POC CO2 19 mmol/L (22-30); POC Calcium, Ionized 1.27 mmEq/L (1.16-1.32); POC Chloride 103 mEq/L (96-108); POC Creatinine 0.9 mg/dL (0.6-1.2); POC Glucose, Random 246 mg/dL (70-105); POC Hematocrit 39 % (36-48); POC Potassium 5.6 mEql/L (3.3-5.1); POC Sodium 133 mEq/L (133-145)
--- NOTE | 2021-05-29 14:01 | Emergency Department Note ---
HPI <Kendrick Talley PA-C - Last Filed: 05/29/21 19:35> General Chief complaint: Recheck/Abnormal Lab/Rx Stated complaint: Abnormal labs Time Seen by Provider: 05/29/21 13:41 Source: patient Mode of arrival: wheelchair Limitations: no limitations History of Present Illness HPI Narrative: Narrative: This is a 81-year-old female who was recently diagnosed with a pancreatic cancer with the metastasis to the both lungs presents emergency department with complaints of generalized weakness for several months. She had her labs drawn by her primary care provider Dr. Beach today which resulted with the leukocytosis at 16.5 with left shift anion gap 21, BUN 53, but normal creatinine. The patient denies fever, headache, changes in vision, chest pain, shortness of breath, abdominal pain, vomiting, nausea, diarrhea, dysuria, urinary frequency or urgency. Patient was seen 2 weeks ago at [facility]. According to patient's there has been no poor follow-up from [facility] and currently Lisa Beach is trying to get her into see an oncologist either in [facility], [facility] or in [place]. Related Data Home Medications Medication Instructions Recorded Confirmed Flaxseed 1 cap PO DAILY 01/17/15 04/24/21 Irbesartan 300 mg PO DAILY 01/17/15 05/30/21 Super Sha-Mag Tablet 1 cap PO BID 01/17/15 05/30/21 amlodipine 5 mg tablet 5 mg PO BID 11/29/20 05/30/21 clonidine HCl 0.2 mg tablet 0.2 mg PO BID 11/29/20 05/30/21 ferrous sulfate 325 mg (65 mg 325 mg PO QDAY 11/29/20 05/30/21 iron) tablet metoprolol tartrate 100 mg tablet 100 mg PO BID 11/29/20 05/30/21 omeprazole 20 mg capsule,delayed 20 mg PO DAILY 11/29/20 05/30/21 release prednisone 5 mg tablet 5 mg PO DAILY 11/29/20 05/30/21 benzhydrocodone 6.12 1 tab PO TIDP PRN 11/30/20 04/24/21 mg-acetaminophen 325 mg tablet cyanocobalamin (vitamin B-12) 1,000 mcg Q2W 11/30/20 05/30/21 1,000 mcg/mL injection solution furosemide 20 mg tablet 40 mg PO QAM 11/30/20 05/30/21 insulin detemir U-100 100 unit/mL 17 unit SUBCUT HS 11/30/20 05/30/21 (3 mL) subcutaneous pen (Levemir FlexTouch U-100 Insulin) potassium chloride 10 mEq 10 meq PO QNOON 11/30/20 05/30/21 tablet,extended release(part/cryst) (Klor-Con M) potassium chloride 10 mEq 20 meq PO BID 11/30/20 05/30/21 tablet,extended release(part/cryst) (Klor-Con M) estradiol 0.5 mg tablet 0.5 mg PO DAILY 05/30/21 05/30/21 fentanyl 12 mcg/hr transdermal 1 patch TRANSDERMAL Q72H 05/30/21 05/30/21 patch glipizide 2.5 mg-metformin 500 mg 1 tab PO HS 05/30/21 05/30/21 tablet glipizide 2.5 mg-metformin 500 mg 2 tab PO DAILY 05/30/21 05/30/21 tablet cvspps-ldfjvxhh-cmuixod 1 cap PO TID 05/30/21 05/30/21 36,000-114,000-180,000 unit capsule,delay rel (Creon) megestrol 10 ml PO BID 05/30/21 05/30/21 Previous Rx's Medication Instructions Recorded atorvastatin 10 mg tablet (Lipitor) 10 mg PO QDAY #30 tab 11/30/20 clopidogrel 75 mg tablet 75 mg PO DAILY #60 tab 12/01/20 ondansetron 4 mg disintegrating 4 mg PO Q8H PRN #10 tab 04/17/21 tablet polyethylene glycol 3350 17 17 g PO QDAY #238 g 04/17/21 gram/dose oral powder (Miralax) zinc oxide-cod liver oil 40 % 1 applic TOPICAL QDAY #28 g 05/24/21 topical paste (Desitin) Allergies Allergy/AdvReac Type Severity Reaction Status Date / Time Antihistamines - Alkylamine AdvReac Intermediate NUMBNESS/TI Verified 05/30/21 07:31 [ANTIHISTAMINES - ALKYLAMINE] NGLING Enalapril [ENALAPRIL] AdvReac Mild COUGH Verified 05/24/21 11:34 morphine [MORPHINE] AdvReac Mild VOMITING Verified 05/30/21 07:31 tramadol [TRAMADOL] AdvReac Mild VOMIT Verified 05/24/21 11:34 SUGAR AdvReac Mild TINGLING Uncoded 05/30/21 07:31 TO EXTREMITIES Review of Systems <Kendrick Talley PA-C - Last Filed: 05/29/21 19:35> ROS ROS Narrative: Narrative: All systems ED: reviewed and negative except as stated. 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, lumbar region (Chronic) GERD (gastroesophageal reflux disease) (Chronic) Type 2 diabetes mellitus (Chronic) Chronic pain (Chronic) Dehydration (Chronic) Hematoma (Chronic) UTI (urinary tract infection) (Chronic) Brain TIA (Chronic) Acute UTI (Chronic) Pancreatic mass (Chronic) Constipation (Chronic) Dark stools (Chronic) Mass of pancreas (Chronic) Medical History Chronic pain Degeneration of intervertebral disc of lumbar region Dehydration GERD (gastroesophageal reflux disease) Hypertension Lumbar stenosis with neurogenic claudication Other low back pain Spinal stenosis Spondylosis without myelopathy or radiculopathy, lumbar region Type 2 diabetes mellitus Surgical History History of surgery 11/24 RFTC Aureliano. L3-S1 w/sed 11/10/201808/24 MBB #2 Aureliano. L3-S1 w/sed 08/18/201807/27 MBB #1 Bilat L3-S1 w/sed 08/02/1805/25 LESI #3 L4-5 w/sed 05/12/201803/25 LESI #2 L2-3 w/sed 03/08/1801/23 LESI #1 L2-3 w/sed 01/28/2018 Social History Smoking Status: Never smoker Exam <Kendrick Talley PA-C - Last Filed: 05/29/21 19:35> Narrative Narrative: Narrative: General Limitations: no limitations General appearance: Present in no apparent distress and nontoxic Head Head: Present atraumatic and normocephalic Eye Eye: Present EOMI Respiratory Respiratory: Present other (Lungs are clear to auscultation bilaterally. No rhonchi rales or wheezes.) Cardiovascular Cardiovascular: Present regular rate, normal rhythm and normal heart sounds Adbominal Abdominal: Present other (Abdomen is soft, nontender. There is no rebound tenderness no guarding. There is no tenderness over McBurney's point. Negative Bryant sign.) Back Back: Present other (Negative CVA tenderness bilaterally.) Neurological Neurological: Present alert and oriented X3 Psychiatric Psychiatric: Present normal affect and normal mood Skin Skin: Present other (There is an area of skin breakdown and erythema consistent with cellulitis on the left buttock.) Course <Kendrick Talley PA-C - Last Filed: 05/29/21 19:35> Vital Signs Vital signs: Vital Signs Temperature 97.3 F 05/29/21 13:32 Pulse Rate 106 H 05/29/21 13:32 Respiratory Rate 16 05/29/21 13:32 Blood Pressure 135/66 05/29/21 13:32 Pulse Oximetry (%) 99 05/29/21 13:32 Temperature 97.6 F 05/30/21 12:01 Pulse Rate 98 H 05/30/21 12:01 Respiratory Rate 16 05/30/21 12:01 Blood Pressure 126/70 05/30/21 12:01 Pulse Oximetry (%) 97 05/30/21 12:01 MDM <KENTRELL Page Last Filed: 05/29/21 19:35> [facility] Narrative Medical decision making narrative: Narrative: Labs from [facility] were reviewed by myself which were s ignificant for a white blood cell count of 16.5, neutrophils 13.3, neutrophil percent 81 CO2 17 anion gap at 21 glucose 255 BUN 53, BUN/creatinine ratio 49.1 creatinine normal normal liver enzymes. Corrected sodium 136.8, potassium 6.6. Ceftriaxone IV ordered. [id number] Chem-8 EKG shows sinus rhythm Sepsis was considered at 1414 with a lactic acid of 5.6. 1415 fluids started. Chest x-ray shows no acute abnormalities UA is not suggestive of UTI I spoke with Dr. Turcios with the hospitalist who would like a CT of her abdomen pelvis with contrast as well as a repeat [id number] potassium in the Chem-8 along with a repeat lactic acid after 2 L of fluid are complete. CT abdomen pelvis with contrast shows a large necrotic tumor in the pancreas which encases the splenic artery and occludes the splenic vein. Pancreatic tumor there is now invasion of the tumor into the portal vein with a nonocclusive thrombus in the portal vein. 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 There is metastasis to the retroperitoneum, mesentery, liver and left lung. Small infiltrate posteriorly and right lower lobe which may be pneumonia versus atelectasis. repeat lactic acid 4.3 Repeat potassium 4.6 BUN [address] Turcios agreed to admit the patient for further evaluation and treatment of cellulitis and sepsis. This patient was discussed with Dr. Hein who agrees my assessment and plan. He did not see the patient we agreed he not need to write a note on patient. Lab Data Result diagrams: 05/30/21 05:25 05/30/21 05:25 Labs: Lab Results 05/29/21 05/29/21 05/29/21 Range/Units 13:39 13:39 13:54 POC Hct 39 (36-48) % POC Sodium 133 (133-145) mEq/L POC Potassium 5.6 H (3.3-5.1) mEql/L POC Chloride 103 (96-108) mEq/L POC Total CO2 19 L (22-30) mmol/L POC BUN 52 H (6-20) mg/dL POC Creatinine 0.9 (0.6-1.2) mg/dL POC Glucose 246 H (70-105) mg/dL POC WB Ioniz Calcium 1.27 (1.16-1.32) mmEq/L Magnesium 2.0 (1.6-2.5) mg/dL Troponin T < 0.01 (<0.03) ng/mL NT-Pro-B Natriuret Pep (<450.0) pg/mL Lipase (7-60) U/L Beta-Hydroxybutyrate 0.25 (<0.27) mmol/L Procalcitonin (<0.10) ng/mL Urine Color Urine Appearance (Clear) Urine pH (5.0-9.0) Ur Specific [place] (1.000-1.035) Urine Protein (Negative) mg/dL Urine Glucose (UA) (Negative) mg/dL Urine Ketones (Negative) mg/dL Urine Occult Blood (Negative) mg/dL Urine Nitrate (Negative) Urine Bilirubin (Negative) mg/dL Urine Urobilinogen mg/dL Ur Leukocyte Esterase (Negative) /uL Urine RBC (0-3) /hpf Urine WBC (0-4) /hpf Ur Squamous Epith Cells (0-4) /hpf Urine Bacteria (0) /hpf Urine Mucus (None) /hpf Ur Culture Indicated? 05/29/21 05/29/21 05/29/21 Range/Units 13:54 13:54 15:11 POC Hct (36-48) % POC Sodium (133-145) mEq/L POC Potassium (3.3-5.1) mEql/L POC Chloride (96-108) mEq/L POC Total CO2 (22-30) mmol/L POC BUN (6-20) mg/dL POC Creatinine (0.6-1.2) mg/dL POC Glucose (70-105) mg/dL POC WB Ioniz Calcium (1.16-1.32) mmEq/L Magnesium (1.6-2.5) mg/dL Troponin T (<0.03) ng/mL NT-Pro-B Natriuret Pep 974.9 H (<450.0) pg/mL Lipase 18 (7-60) U/L Beta-Hydroxybutyrate (<0.27) mmol/L Procalcitonin 0.10 H (<0.10) ng/mL Urine Color Yellow Urine Appearance Clear (Clear) Urine pH 5.0 (5.0-9.0) Ur Specific [place] 1.012 (1.000-1.035) Urine Protein Negative (Negative) mg/dL Urine Glucose (UA) Negative (Negative) mg/dL Urine Ketones Negative (Negative) mg/dL Urine Occult Blood Negative (Negative) mg/dL Urine Nitrate Negative (Negative) Urine Bilirubin Negative (Negative) mg/dL Urine Urobilinogen Negative mg/dL Ur Leukocyte Esterase Negative (Negative) /uL Urine RBC < 1 (0-3) /hpf Urine WBC 2 (0-4) /hpf Ur Squamous Epith Cells 1 (0-4) /hpf Urine Bacteria Many A (0) /hpf Urine Mucus Few A (None) /hpf Ur Culture Indicated? Yes 05/29/21 Range/Units 17:15 POC Hct 39 (36-48) % POC Sodium 133 (133-145) mEq/L POC Potassium 4.6 (3.3-5.1) mEql/L POC Chloride 106 (96-108) mEq/L POC Total CO2 15 L (22-30) mmol/L POC BUN 44 H (6-20) mg/dL POC Creatinine 0.6 (0.6-1.2) mg/dL POC Glucose 186 H (70-105) mg/dL POC WB Ioniz Calcium 1.03 L (1.16-1.32) mmEq/L Magnesium (1.6-2.5) mg/dL Troponin T (<0.03) ng/mL NT-Pro-B Natriuret Pep (<450.0) pg/mL Lipase (7-60) U/L Beta-Hydroxybutyrate (<0.27) mmol/L Procalcitonin (<0.10) ng/mL Urine Color Urine Appearance (Clear) Urine pH (5.0-9.0) Ur Specific [place] (1.000-1.035) Urine Protein (Negative) mg/dL Urine Glucose (UA) (Negative) mg/dL Urine Ketones (Negative) mg/dL Urine Occult Blood (Negative) mg/dL Urine Nitrate (Negative) Urine Bilirubin (Negative) mg/dL Urine Urobilinogen mg/dL Ur Leukocyte Esterase (Negative) /uL Urine RBC (0-3) /hpf Urine WBC (0-4) /hpf Ur Squamous Epith Cells (0-4) /hpf Urine Bacteria (0) /hpf Urine Mucus (None) /hpf Ur Culture Indicated? ED POC Tests ED POC Tests: GREGORY - SARS Antigen Negative EKG Data EKG #1: EKG results narrative: ECG shows sinus rhythm at 60 [place], left axis deviation, normal VA interval narrow QRS normal QTC. There is no ST segment deviation T waves. There is no signs of Brugada, Nsrks-Mewftmerz-Lzdic or HOCM. There is some nonspecific T wave abnormalities in V2 and V3 of T wave inversion but this is unchanged from previous ECG from November 29, 2020. My interpretation is normal sinus rhythm. Discharge Plan Patient/Caregiver Discharge Instructions Pt seen by COFFEE [facility]ASTER/PA only: Yes Clinical Impression: Cellulitis, Sepsis Patient Disposition: Xfer As Inpt ([facility]) Condition: Serious Discharge Date/Time: 05/29/21 20:54
[2021-05-29] MEDS ORDERED: 0.9 % SODIUM CHLORIDE 1,000 ML IV ONE ×2 (14:15→16:39)
--- NOTE | 2021-05-29 14:35 | XRay Report ---
HISTORY: Increased weakness, abnormal lab values FINDINGS: The lungs are clear and well expanded. The heart, mediastinum, song and pleura are normal. Distal end of the left clavicle is surgically absent. There has been no change since 11/29/20. IMPRESSION: Normal exam Interpreted and Authenticated by: Tristian Braden 05/29/21
[2021-05-29 15:05] LABS: proBNP 974.9 pg/mL (<450.0)
[2021-05-29 15:08] LABS: Beta Hydroxybutyrate 0.25 mmol/L (<0.27)
[2021-05-29 16:22] LABS: Appearance,Urine CLEAR (Clear); Bacteria,Urine MANY /hpf (0); Bilirubin,Urine Negative (Negative); Color,Urine YELLOW; Culture Indicated,Urine Yes; Glucose,Urine (UA) Negative (Negative); Ketones,Urine Negative (Negative); Leukocyte Esterase,Urine Negative /uL (Negative); Mucus,Urine FEW /hpf; Nitrate,Urine Negative (Negative); Protein,Urine Negative (Negative); Specific Gravity,Urine 1.012 (1.000-1.035); Urine Blood Negative (Negative); Urine RBC < 1 /hpf (0-3); Urine Squamous Epithelial Cell 1 /hpf (0-4); Urine WBC 2 /hpf (0-4); Urobilinogen,Urine Negative
[2021-05-29] MEDS ORDERED: cefTRIAXone 1 GM VIAL IV ONE (16:39)
[2021-05-29] MEDS ORDERED: DEXTROSE 50% 50 ML VIAL IV PRN ×2 (17:16→20:54)
[2021-05-29] MEDS ORDERED: DEXTROSE 31 GM ORAL.SUSP PO PRN ×2 (17:16→20:54)
--- NOTE | 2021-05-29 18:31 | Cat Scan Report ---
History: Pancreatic cancer, cellulitis around the right buttock, evaluate for abscess or other source of infection TECHNIQUE: Following injection of intravenous nonionic contrast the patient was imaged from above the diaphragm through the symphysis pubis during the portal venous phase. Sagittal and coronal reformats were created. The radiation exposure was limited using dose reduction technology. FINDINGS: Recent has developed three pulmonary metastasis in the left lung base. The largest is located posteriorly in the left lower lobe on image #21. It measures 7 mm. In the Superior segment left lower lobe there is a 6 mm metastasis and anteriorly in the lingula there is a 5 mm metastasis. There is a small alveolar infiltrate in the posterior basal segment of the right lower lobe and a small right-sided pleural effusion. There is a band of atelectasis in the right middle lobe. In segment seven of the right lobe of the liver there is a 7 mm low-attenuation structure appeared to be a cyst on the prior CT scan. It has partial volume averaging at this time. Higher in segment seven and located closer to the diaphragm there is a new 5 mm low-attenuation structure seen on axial image #26 which may be metastasis. There is a stable 1.3 cm cyst in the caudate lobe. The spleen is normal in size. There is a 1 cm subcapsular cyst anteriorly which is unchanged. The gallbladder has been removed. The bile ducts are not abnormally dilated. There is a large low-attenuation tumor involving the neck body and tail of the pancreas. It encases the adjacent arteries. Measures 4.4 x 5.0 x 8.5 cm. It has not enlarged significantly since the prior CT done on 04/16/21. However, there is now invasion of tumor into the portal vein with nonocclusive thrombus in the portal vein. Superior mesenteric vein remains normal and patent. 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 The tumor encases the splenic artery. There are metastatic lymph nodes at the root of the mesentery and in the retroperitoneum adjacent to the aorta and inferior vena cava. These have remained stable. Small amount of ascites has developed in the right upper quadrant and deep in the pelvis . The aorta is normal. The adrenals and kidneys are normal. Large and small intestine are normal in caliber. There is thickening of the wall of the stomach near the pylorus. The tumor abuts the second portion the duodenum but is not causing obstruction. No intra-abdominal abscess is present. The urinary bladder is distended. Uterus and ovaries have been removed. There is mild edema or cellulitis posteriorly in both buttocks but no subcutaneous abscess is present. IMPRESSION: Large necrotic tumor in the pancreas which encases the splenic artery and occludes the splenic vein. Thrombus in the portal vein which is probably tumor extension. Metastasis to the retroperitoneum, mesentery, liver and left lung. Small infiltrate posteriorly in the right lower lobe which may be may be pneumonia or atelectasis Kendrick Talley was called with the report Interpreted and Authenticated by: Tristian Braden 05/29/21
[2021-05-29 19:06] LABS: POC Blood Urea Nitrogen 44 mg/dL (6-20); POC CO2 15 mmol/L (22-30); POC Calcium, Ionized 1.03 mmEq/L (1.16-1.32); POC Chloride 106 mEq/L (96-108); POC Creatinine 0.6 mg/dL (0.6-1.2); POC Glucose, Random 186 mg/dL (70-105); POC Hematocrit 39 % (36-48); POC Potassium 4.6 mEql/L (3.3-5.1); POC Sodium 133 mEq/L (133-145)
--- NOTE | 2021-05-29 19:58 | Internal Med History&Physical ---
HPI History of Present Illness Patient information: Note initiated : 05/29/21 at 7:47 pm Service Date, if different from initiated Date: [] Patient: Ivonne Pimentle a 81 y/o F admitted on for Abnormal labs. Chief Complaint: [] History of present illness: Ms. Pimentel is a 81 year old F Presents to the ED sent in by her PCP for abnormal labs and generalized weakness. Patient's been increasingly weak over the recent weeks to months. Patient saw her PCP for follow-up and PCP got lab. Labs showed a leukocytosis of 16 and a potassium of 6.6. She is on potassium supplements. She was recently diagnosed with metastatic pancreatic cancer last month. She was at [facility] couple weeks ago and they said the only treatment option would be chemotherapy. Her information was transferred to the cancer [facility] in [place] sounds like they wanted her to get strengthened up before the date and chemotherapy. However I can't imagine there is any expectation that she would get stronger given the fact that she has advanced metastatic pancreatic cancer. Nobody has talked about prognosis with the family and I tried to address that in the ED. She is had a poor appetite and has lost weight. She has some mid abdominal pain which is the reason why she went into the ED in early April and when she was found to have cancer. The CT from today shows a large necrotic tumor in the pancreas that encases the splenic artery and occludes the splenic vein. 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 CT also showed mild cellulitis of the buttocks but no abscess. Review of Systems: Positives as above. Denies headache/fever/chills/nausea/vomiting/chest pain/cough/dyspnea/diarrhea. 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, lumbar region (Chronic) GERD (gastroesophageal reflux disease) (Chronic) Type 2 diabetes mellitus (Chronic) Chronic pain (Chronic) Dehydration (Chronic) Hematoma (Chronic) UTI (urinary tract infection) (Chronic) Brain TIA (Chronic) Acute UTI (Chronic) Pancreatic mass (Chronic) Constipation (Chronic) Dark stools (Chronic) Mass of pancreas (Chronic) Medical History Chronic pain Degeneration of intervertebral disc of lumbar region Dehydration GERD (gastroesophageal reflux disease) Hypertension Lumbar stenosis with neurogenic claudication Other low back pain Spinal stenosis Spondylosis without myelopathy or radiculopathy, lumbar region Type 2 diabetes mellitus Surgical History History of surgery 11/24 RFTC Aureliano. L3-S1 w/sed 11/10/201808/24 MBB #2 Aureliano. L3-S1 w/sed 08/18/201807/27 MBB #1 Bilat L3-S1 w/sed 08/02/1805/25 LESI #3 L4-5 w/sed 05/12/201803/25 LESI #2 L2-3 w/sed 03/08/1801/23 LESI #1 L2-3 w/sed 01/28/2018 Social History (Updated 11/29/20 @ 17:31 by Tiago Turcios DO) additional history: PAST MEDICAL HISTORY: Includes diabetes, hypertension, gastroesophageal reflux disease, right lower extremity excision of melanoma in 2004, history of diastolic congestive heart failure, osteoarthritis, history of transient ischemic attacks. CVA PAST SURGICAL HISTORY: Tonsillectomy and adenectomy, right shoulder surgeries, sacroiliac joint fusion, left ankle surgery, bilateral cataracts, appendectomy, cholecystectomy, hysterectomy. FAMILY HISTORY: Per records mother had hypertension, diabetes and myocardial infarction. Father had hypertension and cerebrovascular accidents. 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 She lives at home with her . MEDS/ALLERGIES Home Medications and Allergies Home Medications Medication Instructions Recorded Confirmed Type Flaxseed 1 cap PO DAILY 01/17/15 04/24/21 History Irbesartan 300 mg PO DAILY 01/17/15 04/24/21 History Super Sha-Mag Tablet 1 cap PO BID 01/17/15 04/24/21 History amlodipine 5 mg tablet 5 mg PO BID 11/29/20 04/24/21 History clonidine HCl 0.2 mg tablet 0.2 mg PO BID 11/29/20 04/24/21 History estradiol 0.5 mg tablet 0.5 mg PO DAILY 11/29/20 04/24/21 History ferrous sulfate 325 mg (65 mg 325 mg PO QDAY 11/29/20 04/24/21 History iron) tablet glipizide 2.5 mg-metformin 500 mg 2 tab PO BID 11/29/20 04/24/21 History tablet metoprolol tartrate 100 mg tablet 100 mg PO BID 11/29/20 04/24/21 History omeprazole 20 mg capsule,delayed 20 mg PO DAILY 11/29/20 04/24/21 History release prednisone 5 mg tablet 5 mg PO DAILY 11/29/20 04/24/21 History aspirin 81 mg chewable tablet 81 mg PO DAILY #21 tab 11/30/20 04/24/21 Rx atorvastatin 10 mg tablet (Lipitor) 10 mg PO QDAY #30 tab 11/30/20 04/24/21 Rx benzhydrocodone 6.12 1 tab PO TIDP PRN 11/30/20 04/24/21 History mg-acetaminophen 325 mg tablet cyanocobalamin (vitamin B-12) 1,000 mcg Q2W 11/30/20 04/24/21 History 1,000 mcg/mL injection solution furosemide 20 mg tablet 40 mg PO QAM 11/30/20 04/24/21 History insulin detemir U-100 100 unit/mL 16 unit SUBCUT HS 11/30/20 04/24/21 History (3 mL) subcutaneous pen (Levemir FlexTouch U-100 Insulin) potassium chloride 10 mEq 10 meq PO QNOON 11/30/20 04/24/21 History tablet,extended release(part/cryst) (Klor-Con M) potassium chloride 10 mEq 20 meq PO BID 11/30/20 04/24/21 History tablet,extended release(part/cryst) (Klor-Con M) clopidogrel 75 mg tablet 75 mg PO DAILY #60 tab 12/01/20 04/24/21 Rx ondansetron 4 mg disintegrating 4 mg PO Q8H PRN #10 tab 04/17/21 04/24/21 Rx tablet polyethylene glycol 3350 17 17 g PO QDAY #238 g 04/17/21 04/24/21 Rx gram/dose oral powder (Miralax) zinc oxide-cod liver oil 40 % 1 applic TOPICAL QDAY #28 g 05/24/21 Rx topical paste (Desitin) Allergies Allergy/AdvReac Type Severity Reaction Status Date / Time Antihistamines - Alkylamine Allergy Severe NUMBNESS/TI Verified 05/24/21 11:34 [ANTIHISTAMINES - ALKYLAMINE] NGLING morphine [MORPHINE] AdvReac Intermediate VOMITING Verified 05/24/21 11:34 Enalapril [ENALAPRIL] AdvReac Mild COUGH Verified 05/24/21 11:34 tramadol [TRAMADOL] AdvReac Mild VOMIT Verified 05/24/21 11:34 SUGAR Allergy Mild TINGLING Uncoded 04/24/21 10:55 TO EXTREMITIES EXAM Constitutional Vitals: Temp Pulse Resp BP Pulse Ox 97.3 F 66 20 120/64 96 05/29/21 13:32 05/29/21 19:31 05/29/21 19:31 05/29/21 19:31 05/29/21 19:31 Exam: General: Alert, Awake, No acute Distress Eyes/N/T: EOMI, PERRL, Head/Neck: neck supple, normocephalic atraumatic CV: RRR, No murmurs, normal s1/s2 Pulm: Clear b/l, no wheezing/rhonchi/rales Abd: soft, nontender, +BS x4 Ext: no clubbing/cyanosis/edema Neuro: Alert, no focal deficits, moves all extremities, CN 2-12 grossly intact, symmetrical strength b/l upper/lower, sensations intact b/l upper/lower Skin: warm/dry. buttock with erythema and TTP DATA Data Completed and Pending Labs: Labs from last 24 hours 05/29/21 05/29/21 05/29/21 17:15 15:11 13:54 POC Hct 39 POC Sodium 133 POC Potassium 4.6 POC Chloride 106 POC Total CO2 15 L POC BUN 44 H POC Creatinine 0.6 POC Glucose 186 H POC WB Ioniz Calcium 1.03 L Magnesium Troponin T NT-Pro-B Natriuret Pep 974.9 H Lipase 18 Beta-Hydroxybutyrate Procalcitonin Urine Color Yellow Urine Appearance Clear Urine pH 5.0 Ur Specific [place] 1.012 Urine Protein Negative Urine Glucose (UA) Negative Urine Ketones Negative Urine Occult Blood Negative Urine Nitrate Negative Urine Bilirubin Negative Urine Urobilinogen Negative Ur Leukocyte Esterase Negative Urine RBC < 1 Urine WBC 2 Ur Squamous Epith Cells 1 Urine Bacteria Many A Urine Mucus Few A Ur Culture Indicated? Yes 05/29/21 05/29/21 05/29/21 13:54 13:54 13:39 POC Hct POC Sodium POC Potassium POC Chloride POC Total CO2 POC BUN POC Creatinine POC Glucose POC WB Ioniz Calcium Magnesium 2.0 Troponin T < 0.01 NT-Pro-B Natriuret Pep Lipase Beta-Hydroxybutyrate 0.25 Procalcitonin 0.10 H Urine Color Urine Appearance Urine pH Ur Specific [place] Urine Protein Urine Glucose (UA) Urine Ketones Urine Occult Blood Urine Nitrate Urine Bilirubin Urine Urobilinogen Ur Leukocyte Esterase Urine RBC Urine WBC Ur Squamous Epith Cells Urine Bacteria Urine Mucus Ur Culture Indicated? 05/29/21 13:39 POC Hct 39 POC Sodium 133 POC Potassium 5.6 H POC Chloride 103 POC Total CO2 19 L POC BUN 52 H POC Creatinine 0.9 POC Glucose 246 H POC WB Ioniz Calcium 1.27 Magnesium Troponin T NT-Pro-B Natriuret Pep Lipase Beta-Hydroxybutyrate Procalcitonin Urine Color Urine Appearance Urine pH Ur Specific [place] Urine Protein Urine Glucose (UA) Urine Ketones Urine Occult Blood Urine Nitrate Urine Bilirubin Urine Urobilinogen Ur Leukocyte Esterase Urine RBC Urine WBC Ur Squamous Epith Cells Urine Bacteria Urine Mucus Ur Culture Indicated? A/P Narrative A/P Narrative: A: *Cellulitis buttocks: *Volume Depletion: *Lactic acidosis: Possibly from infection but likely cancer related as well *Leukocytosis: 2/2 cellulitis + possibly cancer related as well *Hyperkalemia: Resolved in the ED. 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
[2021-05-29] MEDS ORDERED: POLYETHYLENE GLYCOL 3350 17 GM PACKET PO PRN (20:54)
[2021-05-29] MEDS ORDERED: POTASSIUM CHLORIDE 40 MEQ in DEXTROSE 5% IN WATER 500 ML IV PRN (20:54)
[2021-05-29] MEDS ORDERED: ACETAMINOPHEN 325 MG TABLET PO PRN (20:54)
[2021-05-29] MEDS ORDERED: IPRATROPIUM/ALBUTEROL 3 ML AMPUL.NEB NEB PRN (20:54)
[2021-05-29] MEDS ORDERED: ENALAPRILAT 1.25 MG/ML VIAL IV PRN (20:54)
[2021-05-29] MEDS ORDERED: SENNOSIDES 1 TABLET PO PRN (20:54)
[2021-05-29] MEDS ORDERED: MAGNESIUM SULFATE 2 GM/50 ML BAG IV PRN (20:54)
[2021-05-29] MEDS ORDERED: ONDANSETRON 4 MG/2 ML VIAL IV PRN (20:54)
[2021-05-29] MEDS ORDERED: POTASSIUM CHLORIDE 20 MEQ TABLET PO PRN ×2 (20:54)
[2021-05-29] MEDS ORDERED: CEFEPIME 2 GM VIAL IV SCH (21:00)
[2021-05-29] MEDS ORDERED: INSULIN LISPRO 1 UNIT/0.01 ML UNIT SQ SCH (21:00)
[2021-05-29] MEDS: INSULIN LISPRO 1 UNIT/0.01 ML UNIT SQ SCH (21:40)
[2021-05-29] MEDS: 0.9 % SODIUM CHLORIDE 1,000 ML IV SCH (21:49)
[2021-05-29] MEDS: ENOXAPARIN 60 MG/0.6 ML SYRINGE SQ SCH (21:50)
[2021-05-29] MEDS: CEFEPIME 1 GM VIAL IV SCH (21:51)
[2021-05-29] MEDS: DOCUSATE SODIUM 100 MG CAPSULE PO SCH (21:51)
[2021-05-29] MEDS ORDERED: CLINDAMYCIN 600 MG/4 ML VIAL ONE (21:54)
[2021-05-29] MEDS: CLINDAMYCIN 600 MG in DEXTROSE 5% IN WATER 50 ML IV SCH (22:28)
[2021-05-29] MEDS: 0.9 % SODIUM CHLORIDE 10 ML SYRINGE IV SCH (22:32)
[2021-05-29] MEDS ORDERED: HYDROcodone/APAP 5/325MG TABLET PO PRN (23:16)
[2021-05-29] MEDS: fentaNYL 100 MCG/2 ML VIAL IV PRN (23:21)
[2021-05-29] MEDS ORDERED: fentaNYL 100 MCG/2 ML VIAL IV ONE (23:24)
[2021-05-30] MEDS: fentaNYL 100 MCG/2 ML VIAL IV ONE ×2 (01:43→01:54)
[2021-05-30] MEDS: fentaNYL 100 MCG/2 ML VIAL IV PRN ×7 (01:44→18:13)
[2021-05-30] MEDS: 0.9 % SODIUM CHLORIDE 10 ML SYRINGE IV SCH ×3 (04:26→21:18)
[2021-05-30] MEDS ORDERED: fentaNYL 100 MCG/2 ML VIAL IV ONE (04:27)
[2021-05-30 06:15] LABS: Hematocrit 45.3 % (34.1-44.9); Hemoglobin 14.6 g/dL (11.2-15.7); Mean Cell Volume 91.1 fL (80.0-100.0); Mean Corpuscular HGB Conc 32.2 g/dL (31.0-36.0); Mean Platelet Volume 9.6 fL (7.4-10.4); Platelet Count 231 K/mcL (140-440); RBC 4.97 M/mcL (3.59-5.38); WBC 13.2 K/mcL (4.5-11.0)
[2021-05-30 06:51] LABS: ALT/SGPT 14 U/L (<40); AST/SGOT 17 U/L (<32); Albumin 3.5 gm/dL (3.2-5.2); Albumin/Globulin Ratio 1.1 (1.0-2.3); Alkaline Phosphatase 72 U/L (39-117); Bilirubin,Direct < 0.2 mg/dL (0-0.3); Bilirubin,Total 0.5 mg/dL (0.1-1.0); Blood Urea Nitrogen 30 mg/dL (8-23); Calcium 9.5 mg/dL (8.6-10.4); Carbon Dioxide 16 mmol/L (22-30); Chloride 101 mmol/L (96-108); Globulin 3.3 gm/dL (2.2-3.7); Glomerular Filtration Rate 82; Glucose 122 mg/dL (70-105); Lactate Dehydrogenase 386 U/L (135-225); Phosphorous 2.8 mg/dL (2.5-4.5); Triglycerides 227 mg/dL (<150); Uric Acid 4.5 mg/dL (2.5-8.0)
[2021-05-30] MEDS: PANTOPRAZOLE 40 MG TABLET PO SCH ×2 (07:04→07:14)
[2021-05-30] MEDS: INSULIN LISPRO 1 UNIT/0.01 ML UNIT SQ SCH ×4 (07:14→21:50)
--- NOTE | 2021-05-30 07:27 | Internal Med Progress Note ---
SUBJECTIVE Subjective Patient information: Note initiated : 05/30/21 at 7:21 am Service Date, if different from initiated Date: [] Patient: Ivonne Pimentel a 81 y/o F admitted on 05/29/21 for Abnormal labs. Chief Complaint: [] Interval history: History of present illness: Ms. Pimentel is a 81 year old F Presents to the ED sent in by her PCP for abnormal labs and generalized weakness. Patient's been increasingly weak over the recent weeks to months. Patient saw her PCP for follow-up and PCP got lab. Labs showed a leukocytosis of 16 and a potassium of 6.6. She is on potassium supplements. She was recently diagnosed with metastatic pancreatic cancer last month. She was at [facility] couple weeks ago and they said the only treatment option would be chemotherapy. Her information was transferred to the cancer Center [facility] in [place] sounds like they wanted her to get strengthened up before the date and chemotherapy. However I can't imagine there is any expectation that she would get stronger given the fact that she has advanced metastatic pancreatic cancer. Nobody has talked about prognosis with the family and I tried to address that in the ED. She is had a poor appetite and has lost weight. She has some mid abdominal pain which is the reason why she went into the ED in early April and when she was found to have cancer. The CT from today shows a large necrotic tumor in the pancreas that encases the splenic artery and occludes the splenic vein. 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 CT also showed mild cellulitis of the buttocks but no abscess. 05/30 No new complaints or changes overnight. Patient takes prednisone but does not know why, old notes possibly polymyalgia rheumatica. Leukocytosis improving. Chronic abdominal pain. Review of Systems: denies headache/fever/chills/nausea/vomiting/chest pain/cough/dyspnea/diarrhea. Otherwise see above. Constitutional Vitals: Vital Signs Temp Pulse Resp BP Pulse Ox 97.6 F 76 16 146/66 98 05/30/21 02:55 05/30/21 02:55 05/30/21 02:55 05/30/21 02:55 05/30/21 02:55 Period Temp Pulse Resp BP Sys/[place] Pulse Ox Last 24 Hr 97.3 F-98.5 F 56-106 11-20 100-146/53-69 96-100 Intake and Output 05/29/21 05/30/21 05/30/21 21:59 05:59 13:59 Intake Total 1999 254 Output Total 450 300 Balance 1999 Weight 58.014 kg Intake & Output: Intake & Output 05/29/21 05/30/21 05/30/21 21:59 05:59 13:59 Intake Total 1999 254 Output Total 450 300 Balance 1999 Weight 58.014 kg Intake: IV 1999 54 Sodium Chloride 0.9% 1,000 ml @ 2000 Wide Open IV BOLUS ONE Rx#: [id number] Cleocin 600 mg In Dextrose 5% 54 in Water 50 ml @ 100 mls/hr IV Q8H ON LICENSE OF [facility] Rx#:[id number] Oral 200 Output: Void Amount 450 300 Other: Urine Appearance Clear Clear Urine Color Bright Yellow Bright Yellow Exam: General: Alert, Awake, No acute Distress Eyes/N/T: EOMI, Head/Neck: neck supple, CV: RRR, No murmurs, Pulm: Clear b/l, no wheezing/rhonchi/rales Abd: soft, nontender, +BS x4 Ext: no clubbing/cyanosis/edema Neuro: Alert, no focal deficits, moves all extremities, Skin: warm/dry. buttock with erythema and TTP OBJ DATA Labs CBC & Chem 7: 05/30/21 05:25 05/30/21 05:25 Labs: Abnormal Lab Results 05/30/21 05/30/21 05/29/21 05:25 05:25 17:15 WBC 13.2 H Hct 45.3 H POC Potassium Carbon Dioxide 16 L POC Total CO2 15 L Anion Gap 17.0 H POC BUN 44 H BUN 30 H Glucose 122 H POC Glucose 186 H POC WB Ioniz Calcium 1.03 L Lactate Dehydrogenase 386 H NT-Pro-B Natriuret Pep Triglycerides 227 H Procalcitonin Urine Bacteria Urine Mucus 05/29/21 05/29/21 05/29/21 15:11 13:54 13:54 WBC Hct POC Potassium Carbon Dioxide POC Total CO2 Anion Gap POC BUN BUN Glucose POC Glucose POC WB Ioniz Calcium Lactate Dehydrogenase NT-Pro-B Natriuret Pep 974.9 H Triglycerides Procalcitonin 0.10 H Urine Bacteria Many A Urine Mucus Few A 05/29/21 13:39 WBC Hct POC Potassium 5.6 H Carbon Dioxide POC Total CO2 19 L Anion Gap POC BUN 52 H BUN Glucose POC Glucose 246 H POC WB Ioniz Calcium Lactate Dehydrogenase NT-Pro-B Natriuret Pep Triglycerides Procalcitonin Urine Bacteria Urine Mucus Meds: Medications Acetaminophen (Acetaminophen 325 Mg Tablet) 650 mg PO Q6HP PRN; Protocol PRN Reason: Per Pain Protocol/Fever > 101 Hydrocodone Bitart/Acetaminophen (Hydrocodone/Apap 5/325mg Tablet) 1 tab PO Q4- 6HP PRN; Protocol PRN Reason: Per Pain Protocol Albuterol/Ipratropium (Ipratropium/Albuterol 3 Ml Ampul.Neb) 3 ml NEB Q4HP PRN PRN Reason: Shortness Of Breath Cefepime HCl (Cefepime 1 Gm Vial) 1 gm IV Q12H ON LICENSE OF [facility] Last Admin: 05/29/21 21:51 Dose: 1 gm Documented by: Dextrose (Dextrose 50% 50 Ml Vial) 0 ml IV UD PRN PRN Reason: Hypoglycemia Diagnostic Test (Pha) (Accu-Chek 1 Each Strip) 1 each FS ACHS ON LICENSE OF [facility] Last Admin: 05/30/21 07:14 Dose: 1 each Documented by: Docusate Sodium (Docusate Sodium 100 Mg Capsule) 100 mg PO BID ON LICENSE OF [facility] Last Admin: 05/29/21 21:51 Dose: 100 mg Documented by: Enalaprilat (Enalaprilat 1.25 Mg/Ml Vial) 0 mg IV Q2HP PRN PRN Reason: Hypertension Enoxaparin Sodium (Enoxaparin 60 Mg/0.6 Ml Syringe) 60 mg SQ BID ON LICENSE OF [facility] Last Admin: 05/29/21 21:50 Dose: 60 mg Documented by: Fentanyl (Fentanyl 100 Mcg/2 Ml Vial) 25 mcg IV Q1HP PRN; Protocol PRN Reason: Per Pain Protocol Last Admin: 05/30/21 04:24 Dose: 25 mcg Documented by: Glucose (Dextrose 31 Gm Oral.Susp) 15 gm PO PRN PRN PRN Reason: Hypoglycemia Potassium Chloride 40 meq/ (Dextrose) 520 mls @ 130 mls/hr IV UD PRN PRN Reason: Potassium < 3 Clindamycin Phosphate 600 mg/ (Dextrose) 54 mls @ 100 mls/hr IV Q8H ON LICENSE OF [facility]; Protocol Stop: 05/31/21 14:33 Last Infusion: 05/29/21 23:01 Dose: Infused Documented by: Magnesium Sulfate (Magnesium Sulfate) 2 gm in 50 mls @ 50 mls/hr IV UD PRN PRN Reason: Magnesium </= 1.6 Sodium Chloride (Sodium Chloride 0.9%) 1,000 mls @ 75 mls/hr IV .[id number] ON LICENSE OF [facility] Stop: 05/30/21 23:33 Last Admin: 05/29/21 21:49 Dose: 75 mls/hr Documented by: Insulin Human Lispro (Insulin Lispro 1 Unit/0.01 Ml Unit) 0 unit SQ ACHS ON LICENSE OF [facility]; Protocol Last Admin: 05/30/21 07:14 Dose: Not Given Documented by: Ondansetron HCl (Ondansetron 4 Mg/2 Ml Vial) 4 mg IV Q4HP PRN PRN Reason: Nausea And Vomiting Pantoprazole Sodium (Pantoprazole 40 Mg Tablet) 40 mg PO QAMAC ON LICENSE OF [facility] Last Admin: 05/30/21 07:14 Dose: Not Given Documented by: Polyethylene Glycol (Polyethylene Glycol 3350 17 Gm Packet) 17 gm PO DAILYP PRN PRN Reason: Constipation Potassium Chloride (Potassium Chloride 20 Meq Tablet) 40 meq PO UD PRN PRN Reason: Potssium is 3-3.5 Potassium Chloride (Potassium Chloride 20 Meq Tablet) 40 meq PO UD PRN PRN Reason: Potassium < 3 Senna (Sennosides 1 Tablet) 2 tab PO DAILYP PRN PRN Reason: Constipation Sodium Chloride (0.9 % Sodium Chloride 10 Ml Syringe) 10 ml IV Q8 ON LICENSE OF [facility] Last Admin: 05/30/21 04:26 Dose: Not Given Documented by: A/P Narrative A/P Narrative: A: *Cellulitis buttocks: -leukocytosis improving *Volume Depletion: improving *Lactic acidosis: infection +/- cancer related as well. Resolved *Hyperkalemia: Resolved in the ED. 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 *Metastatic Pancreatic Cancer: Recent diagnosis -Extremely poor prognosis *h/o CVA: on ASA/Statin *HTN: ?norvasc/clonidine/Irbesartan/lopressor/ *DM: A1c *h/o diastolic cardiac dysfxn: *GERD *on prednisone for ?Polymyalgia Rheumatica *Goals of care P: -Cefepime, clinda for 48hrs, mrsa screen neg -pending BC -hold potassium supp -hold lasix -Anticoagulation -cont norvasc/clondine/ARB/BB - clarify on all 4 meds -basal and SSI - -pt/ot -f/u with oncologist -ppx: lovenox bid / home ppi DNR Time Spent With Patient Time: Total time spent is greater than 50% in coordination of care (as documented) at patient's floor/unit and/or counseling patient: QUALITY VTE Deep Vein Thrombosis/Pulmonary Embolism Present on Admission: No
[2021-05-30 07:38] LABS: Lymphocytes % 10 % (15-49); Metamyelocytes % 1 %; Monocytes % (Manual) 2 % (1-12); Platelet Estimate NORMAL (Normal); RBC Morphology NORMAL (Normal); Segmented Neutrophils % 87 % (38-78)
[2021-05-30] MEDS: CLINDAMYCIN 600 MG in DEXTROSE 5% IN WATER 50 ML IV SCH ×3 (08:12→21:51)
[2021-05-30] MEDS: OMEPRAZOLE 20 MG CAPSULE PO SCH (08:37)
[2021-05-30 08:41] LABS: Hemoglobin A1C 9.6 % Hgb (4.0-6.0)
[2021-05-30] MEDS: CEFEPIME 1 GM VIAL IV SCH ×2 (08:48→22:06)
[2021-05-30] MEDS: SODIUM BICARBONATE 650 MG TABLET PO SCH ×3 (08:49→21:35)
[2021-05-30] MEDS: METOPROLOL TARTRATE 50 MG TABLET PO SCH ×3 (08:49→21:34)
[2021-05-30] MEDS: predniSONE 5 MG TABLET PO SCH (08:50)
[2021-05-30] MEDS: ASPIRIN 81 MG TAB.CHEW PO SCH ×2 (08:50→10:02)
[2021-05-30] MEDS: amLODIPine 5 MG TABLET PO SCH ×3 (08:55→21:37)
[2021-05-30] MEDS: DOCUSATE SODIUM 100 MG CAPSULE PO SCH ×3 (08:55→21:36)
[2021-05-30] MEDS: cloNIDine HCL 0.1 MG TABLET PO SCH ×3 (08:55→21:36)
[2021-05-30] MEDS: ENOXAPARIN 60 MG/0.6 ML SYRINGE SQ SCH ×2 (08:55→21:33)
[2021-05-30] MEDS: ATORVASTATIN 10 MG TABLET PO SCH ×2 (08:55→10:03)
--- NOTE | 2021-05-30 09:31 | EKG ---
[facility] Test Date: 2021-05-29 Pat Name: Ivonne Pimentel Department: ED Room: Gender: Female Incident Response Consultant: kw : 1940 Requested By: Kendrick Talley Order Number: [id number] Reading MD: Peterson Collado Measurements Intervals [place] Rate: 64 P: -43 TX: 140 QRS: -9 QRSD: 94 T: 56 QT: 401 QTc: 414 Interpretive Statements Sinus rhythm Nonspecific T abnormalities, anterior leads Electronically Signed On 05-30-2021 9:31:39 PST by Peterson Collado /[id number]
[2021-05-30] MEDS ORDERED: fentaNYL 25 MCG PATCH TOPICAL SCH (10:00)
[2021-05-30] MEDS: LOSARTAN 50 MG TABLET PO SCH (10:02)
[2021-05-30] MEDS: 0.9 % SODIUM CHLORIDE 1,000 ML IV SCH (13:01)
[2021-05-30] MEDS: LIPASE/PROTEASE/AMYLASE 1 CAP CAPSULE PO SCH (16:58)
[2021-05-30] MEDS ORDERED: INSULIN GLARGINE, HUMAN 1 UNIT/0.01 ML SQ SCH (21:00)
[2021-05-30] MEDS: MEGESTROL ACETATE 400 MG/10 ML ORAL.SUSP PO SCH (21:32)
[2021-05-31] MEDS: CLINDAMYCIN 600 MG in DEXTROSE 5% IN WATER 50 ML IV SCH (05:39)
[2021-05-31] MEDS: 0.9 % SODIUM CHLORIDE 10 ML SYRINGE IV SCH (05:40)
[2021-05-31 06:34] LABS: Basophils # (Auto) 0.09 K/mcL (0.00-0.30); Basophils % (Auto) 0.9 % (0.0-2.0); Eosinophils # (Auto) 0.03 K/mcL (0.00-0.70); Eosinophils % (Auto) 0.3 % (0.0-7.0); Hematocrit 35.9 % (34.1-44.9); Lymphocytes # (Auto) 1.06 K/mcL (1.50-4.80); Lymphocytes % (Auto) 10.3 % (15.5-49.0); Mean Cell Volume 87.8 fL (80.0-100.0); Mean Corpuscular HGB Conc 33.4 g/dL (31.0-36.0); Monocytes # (Auto) 0.98 K/mcL (0.10-0.90); Monocytes % (Auto) 9.5 % (1.0-12.0); Platelet Count 198 K/mcL (140-440); RBC 4.09 M/mcL (3.59-5.38); Red Cell Distribution Width 14.2 % (11.5-14.5); WBC 10.3 K/mcL (4.5-11.0)
[2021-05-31 06:52] LABS: ALT/SGPT 11 U/L (<40); AST/SGOT 15 U/L (<32); Albumin/Globulin Ratio 1.3 (1.0-2.3); Alkaline Phosphatase 60 U/L (39-117); Bilirubin,Total 0.5 mg/dL (0.1-1.0); Blood Urea Nitrogen 15 mg/dL (8-23); Calcium 8.6 mg/dL (8.6-10.4); Carbon Dioxide 24 mmol/L (22-30); Chloride 106 mmol/L (96-108); Globulin 2.4 gm/dL (2.2-3.7); Glomerular Filtration Rate 92; Glucose 105 mg/dL (70-105)
[2021-05-31] MEDS: OMEPRAZOLE 20 MG CAPSULE PO SCH (07:15)
[2021-05-31] MEDS: LIPASE/PROTEASE/AMYLASE 1 CAP CAPSULE PO SCH ×2 (07:15→11:35)
[2021-05-31] MEDS: INSULIN LISPRO 1 UNIT/0.01 ML UNIT SQ SCH ×2 (07:15→11:35)
[2021-05-31] MEDS: predniSONE 5 MG TABLET PO SCH (07:15)
[2021-05-31] MEDS: cloNIDine HCL 0.1 MG TABLET PO SCH (08:32)
[2021-05-31] MEDS: LOSARTAN 50 MG TABLET PO SCH (08:32)
[2021-05-31] MEDS: ENOXAPARIN 60 MG/0.6 ML SYRINGE SQ SCH (08:33)
[2021-05-31] MEDS: METOPROLOL TARTRATE 50 MG TABLET PO SCH (08:33)
[2021-05-31] MEDS: MEGESTROL ACETATE 400 MG/10 ML ORAL.SUSP PO SCH (08:33)
[2021-05-31] MEDS: amLODIPine 5 MG TABLET PO SCH (08:33)
[2021-05-31] MEDS: DOCUSATE SODIUM 100 MG CAPSULE PO SCH (08:33)
[2021-05-31] MEDS: ATORVASTATIN 10 MG TABLET PO SCH (08:33)
[2021-05-31] MEDS: ASPIRIN 81 MG TAB.CHEW PO SCH (08:33)
[2021-05-31] MEDS: CEFEPIME 1 GM VIAL IV SCH (08:44)
[2021-05-31] MEDS ORDERED: CLOPIDOGREL 75 MG TABLET PO SCH (09:00)
--- NOTE | 2021-05-31 10:57 | Discharge Summary ---
Discharge Provider Provider Patient information: Note initiated : 05/31/21 at 10:52 am Service Date, if different from initiated Date: [] Patient: Ivonne Pimentel 81 y/o F admitted on 05/29/21 for Abnormal labs. Chief Complaint: [] Date of admission: 05/29/21 20:51 Discharge date: 05/31/21 Primary care physician: Lisa Beach Attending physician on admission: Tiago Turcios Consults: 05/29/21 Consult to Physician [CONS] Stat Comment: Consulting Provider: Tiago Turcios Reason For Exam: Physician to Consult Consult to Physician [CONS] Stat Comment: Consulting Provider: Tiago Turcios Reason For Exam: Physician to Consult Attending physician on discharge: Paul Lyles Discharge Meds Discharge Medications Home Medications Flaxseed 1 cap PO DAILY 01/17/15 [History Confirmed 05/30/21 Last Taken 11/28/20 08:00] Irbesartan 300 mg PO DAILY 01/17/15 [History Confirmed 05/30/21 Last Taken 11/28/20 08:00] Super Sha-Mag Tablet 1 cap PO BID 01/17/15 [History Confirmed 05/30/21 Last Taken 11/28/20 20:00] amlodipine 5 mg tablet 5 mg PO BID 11/29/20 [History Confirmed 05/30/21 Last Taken 11/28/20 19:00] clonidine HCl 0.2 mg tablet 0.2 mg PO BID 11/29/20 [History Confirmed 05/30/21 Last Taken 11/28/20 19:00] ferrous sulfate 325 mg (65 mg iron) tablet 325 mg PO QDAY 11/29/20 [History Confirmed 05/30/21 Last Taken 11/28/20 08:00] metoprolol tartrate 100 mg tablet 100 mg PO BID 11/29/20 [History Confirmed 05/30/21 Last Taken 11/28/20 20:00] omeprazole 20 mg capsule,delayed release 20 mg PO DAILY 11/29/20 [History Confirmed 05/30/21 Last Taken 11/28/20 08:00] prednisone 5 mg tablet 5 mg PO DAILY 11/29/20 [History Confirmed 05/30/21 Last Taken 11/28/20 08:00] atorvastatin 10 mg tablet (Lipitor) 10 mg PO QDAY #30 tab 11/30/20 [Rx Confirmed 05/30/21 Last Taken Unknown] cyanocobalamin (vitamin B-12) 1,000 mcg/mL injection solution 1,000 mcg Q2W 11/30/20 [History Confirmed 05/30/21 Last Taken Unknown] furosemide 20 mg tablet 40 mg PO QAM 11/30/20 [History Confirmed 05/30/21 Last Taken Unknown] insulin detemir U-100 100 unit/mL (3 mL) subcutaneous pen (Levemir FlexTouch U- 100 Insulin) 17 unit SUBCUT HS 11/30/20 [History Confirmed 05/30/21 Last Taken 11/28/20 20:00] potassium chloride 10 mEq tablet,extended release(part/cryst) (Klor-Con M) 10 meq PO QNOON 11/30/20 [History Confirmed 05/30/21 Last Taken Unknown] potassium chloride 10 mEq tablet,extended release(part/cryst) (Klor-Con M) 20 meq PO BID 11/30/20 [History Confirmed 05/30/21 Last Taken Unknown] clopidogrel 75 mg tablet 75 mg PO DAILY #60 tab 12/01/20 [Rx Confirmed 05/30/21 Last Taken Unknown] ondansetron 4 mg disintegrating tablet 4 mg PO Q8H PRN #10 tab 04/17/21 [Rx Confirmed 05/30/21 Last Taken Unknown] polyethylene glycol 3350 17 gram/dose oral powder (Miralax) 17 g PO QDAY #238 g 04/17/21 [Rx Confirmed 05/30/21 Last Taken Unknown] zinc oxide-cod liver oil 40 % topical paste (Desitin) 1 applic TOPICAL QDAY #28 g 05/24/21 [Rx Confirmed 05/30/21 Last Taken Unknown] estradiol 0.5 mg tablet 0.5 mg PO DAILY 05/30/21 [History Confirmed 05/30/21 Last Taken Unknown] glipizide 2.5 mg-metformin 500 mg tablet 1 tab PO HS 05/30/21 [History Confirmed 05/30/21 Last Taken Unknown] glipizide 2.5 mg-metformin 500 mg tablet 2 tab PO DAILY 05/30/21 [History Confirmed 05/30/21 Last Taken Unknown] yabhoc-sjhwikor-gkqmjkd 36,000-114,000-180,000 unit capsule,delay rel (Creon) 1 cap PO TID 05/30/21 [History Confirmed 05/30/21 Last Taken Unknown] megestrol 10 ml PO BID 05/30/21 [History Confirmed 05/30/21 Last Taken Unknown] clindamycin HCl 300 mg capsule 600 mg PO Q8H #21 cap 05/31/21 [Rx Last Taken Unknown] fentanyl 12 mcg/hr transdermal patch 1 patch TRANSDERMAL Q72H #10 ea 05/31/21 [Rx Last Taken Unknown] hydrocodone 5 mg-acetaminophen 325 mg tablet 1 tab PO Q4-6HP PRN #20 tab 05/31/21 [Rx Last Taken Unknown] COURSE Hospital Course Hospital course: Ms. Pimentel is a 81 year old F Presents to the ED sent in by her PCP for abnormal labs and generalized weakness. Patient's been increasingly weak over the recent weeks to months. Patient saw her PCP for follow-up and PCP got lab. Labs showed a leukocytosis of 16 and a potassium of 6.6. She is on potassium supplements. She was recently diagnosed with metastatic pancreatic cancer last month. She was at [facility] couple weeks ago and they said the only treatment option would be chemotherapy. Her information was transferred to the cancer Center [facility] in [place] sounds like they wanted her to get strengthened up before the date and chemotherapy. However I can't imagine there is any expectation that she would get stronger given the fact that she has advanced metastatic pancreatic cancer. Nobody has talked about prognosis with the family and I tried to address that in the ED. She is had a poor appetite and has lost weight. She has some mid abdominal pain which is the reason why she went into the ED in early April and when she was found to have cancer. The CT from today shows a large necrotic tumor in the pancreas that encases the splenic artery and occludes the splenic vein. 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 CT also showed mild cellulitis of the buttocks but no abscess. 05/30 No new complaints or changes overnight. Patient takes prednisone but does not know why, old notes possibly polymyalgia rheumatica. Leukocytosis improving. Chronic abdominal pain. 05/31: Reached clinical stability. Had a lengthy bedside discussion with regarding prognosis and goal of care. Would proceed with discharging on home health with follow up appointment with cancer center in 3 days. Would also keep hospice team in the loop. Rx Clindamycin and Fentanyl and [place] given to patient. Discharge diagnosis: [place] Cellulitis, metastatic pancreatitic cancer Time Spent with Patient Time attestation: Total time spent providing and/or coordinating discharge services: Time spent: Greater than 30 minutes EXAM Constitutional Vitals: Temp Pulse Resp BP Pulse Ox 36.1 C L 71 16 131/66 91 05/31/21 07:36 05/31/21 07:36 05/31/21 07:42 05/31/21 07:36 05/31/21 07:36 General appearance: cooperative and no acute distress Exam: lethargic Head Head exam: Present atraumatic and normocephalic Eye Eye exam: Present EOMI and PERRL ENT ENT exam: Present mucous membranes moist, normal exam and normal external ear exam Neck Neck exam: Present normal inspection; Absent lymphadenopathy, tenderness or thyromegaly Respiratory Respiratory exam: Absent accessory muscle use, respiratory distress or wheezes Cardiovascular Cardiovascular exam: Present normal rate and rhythm; Absent JVD GI/Abdominal GI/Abdominal exam: Present normal bowel sounds and soft; Absent organomegaly or tenderness Extremities Exam Extremities exam: Present full ROM, normal capillary refill and normal inspection; Absent tenderness Neurological Exam Neurological exam: Present alert, CN II-XII intact and oriented X3; Absent motor sensory deficit Psychiatric Psychiatric exam: Present normal affect and normal mood; Absent anxious or depressed Skin Skin exam: Present dry and intact Additional comments: Buttock erythematic rash Discharge Data Data Completed and Pending Labs on day of discharge: Labs from last 24 hours 05/31/21 05/31/21 05:05 05:05 WBC 10.3 RBC 4.09 Hgb 12.0 Hct 35.9 MCV 87.8 MCH 29.3 MCHC 33.4 RDW 14.2 Plt Count 198 MPV 10.0 Neut % (Auto) 79.0 H Lymph % (Auto) 10.3 L [place] % (Auto) 9.5 Eos % (Auto) 0.3 Baso % (Auto) 0.9 Lymph # (Auto) 1.06 L [place] # (Auto) 0.98 H Eos # (Auto) 0.03 Baso # (Auto) 0.09 Absolute Neutrophils 8.15 H Sodium 139 Potassium 3.7 Chloride 106 Carbon Dioxide 24 Anion Gap 9.0 BUN 15 Creatinine 0.5 L GFR Calculation 92 Glucose 105 Calcium 8.6 Total Bilirubin 0.5 AST 15 ALT 11 Alkaline Phosphatase 60 Total Protein 5.4 L Albumin 3.0 L Globulin 2.4 Albumin/Globulin Ratio 1.3 Preliminary micro results at discharge 05/29/21 15:36 Blood Culture - Preliminary Blood 05/29/21 15:30 Blood Culture - Preliminary Blood Discharge Plan Patient/Caregiver Discharge Instructions Activity: increase activity as tolerated Diet: Consistent Carbohydrate Prescriptions: New hydrocodone-acetaminophen 5-325 mg Tablet 1 tab PO Q4-6HP PRN (Reason: Per Pain Protocol) Qty: 20 0RF clindamycin HCl 300 mg capsule 600 mg PO Q8H Qty: 21 0RF Continued Flaxseed 1 cap PO DAILY 0RF Irbesartan 300 MG 300 mg PO DAILY 0RF Super Sha-Mag Tablet 1 cap PO BID 0RF ferrous sulfate 325 mg (65 mg iron) Tablet 325 mg PO QDAY 0RF amlodipine 5 mg tablet 5 mg PO BID 0RF clonidine HCl 0.2 mg tablet 0.2 mg PO BID 0RF metoprolol tartrate 100 mg tablet 100 mg PO BID 0RF prednisone 5 mg tablet 5 mg PO DAILY 0RF omeprazole 20 mg capsule,delayed release(DR/EC) 20 mg PO DAILY 0RF Levemir FlexTouch U-100 Insuln 100 unit/mL (3 mL) insulin pen 17 unit SUBCUT HS 0RF atorvastatin [Lipitor] 10 mg tablet 10 mg PO QDAY Qty: 30 0RF furosemide 20 mg tablet 40 mg PO QAM 0RF potassium chloride [Klor-Con M10] 10 mEq tablet,ER particles/crystals 20 meq PO BID 0RF potassium chloride [Klor-Con M10] 10 mEq tablet,ER particles/crystals 10 meq PO QNOON 0RF cyanocobalamin (vitamin B-12) 1,000 mcg/mL solution 1,000 mcg Q2W 0RF Label Comments: INJECT 1ML INTRAMUSCULAR ONCE EVERY 2 WEEKS clopidogrel 75 mg Tablet 75 mg PO DAILY Qty: 60 0RF polyethylene glycol 3350 [Miralax] 17 gram/dose powder 17 g PO QDAY Qty: 238 0RF ondansetron 4 mg tablet,disintegrating 4 mg PO Q8H PRN (Reason: nausea and vomiting) Qty: 10 0RF Desitin 40 % paste 1 applic topical QDAY Qty: 28 0RF Creon 36,000-114,000- 180,000 unit capsule,delayed release(DR/EC) 1 cap PO TID 0RF Rx Instructions: TID before meals glipizide-metformin 2.5-500 mg tablet 2 tab PO DAILY 0RF glipizide-metformin 2.5-500 mg tablet 1 tab PO HS 0RF estradiol 0.5 mg tablet 0.5 mg PO DAILY 0RF megestrol 10 ml PO BID 0RF Rx Instructions: For 30 days fentanyl 12 mcg/hr Patch 72 Hour 1 patch TRANSDERMAL Q72H Qty: 10 0RF Follow Up Plan Follow up with: Lisa Beach MD [Primary Care Provider] - Patient Disposition: Home Health Service Prognosis: Serious Rehab Potential: Serious I certify that the patient requires SNF services: No Overall status at discharge: patient is progressing back to baseline Discharge Orders: Discharge Order (Routine); Ordered 05/31/21 Ordered By: Paul BHATIA VTE Deep Vein Thrombosis/Pulmonary Embolism Present on Admission: No
== END 2021-05-31 13:22 | disposition home health service (06) | DRG 603 ==
LOC: ED 13:31 → MEDSUR 20:54
PROVIDERS: ADMIT Internal Medicine; ATTEND Internal Medicine